=== PATIENT | male | born 1940 | race Caucasian/White ===

== ENCOUNTER → 2016-02-17 | Outpatient (CLI) | payer MEDICARE, BC ==
[~2016-02-17] MED LIST: /METO25TA PO; ALBU17IN INH; ALLO300T2 PO; ASPI325T10 PO; ASPI32ECTA PO; BUSP10TA PO; CALC0.25 PO; CALC1CAP31 PO; CEFD1CAP8 PO; CINA30TA PO; CO Q100C10 PO; CORE12.5 PO; CORE25TA PO; DIGO0.12 PO; E-Z-GAS II EFFERVESCENT PACKET (SODIUM BICARB./CITRIC ACID/SIMETHICONE) As Ordered ONE; E-Z-HD 98% w/w 340GM SUSP BTL As Ordered ONE; E-Z-PAQUE 96% w/w SUSP 176GM BTL As Ordered ONE; FERR150C PO; FISH5CAP PO; FURO20TA2 PO; FURO40TA2 PO; HYDR-4267 PO; IMUR50TA PO; INSUR50VL SC; ISOS120T4 PO; ISOS1TAB PO; ISOS1TAB12 PO; ISOS20TA2 PO; ISOS60TA2 PO; K-TA1TAB PO; LASI40TA PO; LEVO137T14 PO; LEVOXYL PO; LOMO2.5T PO; MECL25CH PO; MORP1SOL PO; MORPHINE SULFATE PO; MULTCAP PO; NITR4TASL SL; OCUVTA PO; OXYCO5TA PO; POLYSPORIN TOP; POTA20TA4 PO; PRAV40TA PO; PRAV80TA PO; SENS30TA PO; SPIR25TA2 PO; SYNT137T7 PO; TYLE325T5 PO; UCER9TAB PO; ULOR80TA PO; VITMTA PO; ZARO2.5T PO; augmentin PO
--- NOTE | 2016-02-17 14:43 | REP ---
ESOPHAGRAM AIR CONTRAST: The procedure was performed under the direct supervision of Dr. Hess. The images were reviewed with Dr. Hess. A single view PA chest x-ray is submitted as a trend investigator film. There is no change compared to a previous chest x-ray performed on 06/07/2014. Liquid barium and gas producing granules are given in the erect position as well as liquid barium in the prone oblique positions in order to perform double contrast esophagram examination. The oral and pharyngeal stages of deglutition are unremarkable. During esophageal transport, there are tertiary waves demonstrated. There is no esophagitis, structure or mucosal ring. There may be a small sliding type hiatal hernia present. Gastroesophageal reflux is not demonstrated on this examination. IMPRESSION: There is esophageal dysmotility. There may be a small sliding type hiatal hernia present. Otherwise unremarkable double contrast esophagram examination. 49 seconds of fluoroscopy time was utilized for this procedure. Reviewed by RODRIGUEZ Grimaldo 02/17/2016 04:15 PEdited and Signed by Chacho Hess MD 02/17/2016 05:22 P
== END ==
LOC: M RAD 08:41
PROVIDERS: ATTEND Otolaryngology
DX: R12 Heartburn (principal)

== ENCOUNTER → 2016-02-23 | Outpatient (CLI) | payer MEDICARE, BC ==
[~2016-02-23] MED LIST changes: -E-Z-GAS II EFFERVESCENT PACKET (SODIUM BICARB./CITRIC ACID/SIMETHICONE) As Ordered ONE; -E-Z-HD 98% w/w 340GM SUSP BTL As Ordered ONE; -E-Z-PAQUE 96% w/w SUSP 176GM BTL As Ordered ONE
[2016-02-23 10:14] LABS: MEAN CORPUSCULAR HGB CONC 32.3 g/dl (32.0-36.5); MEAN CORPUSCULAR VOLUME 102.2 fl (80.0-96.0); RED CELL DISTRIBUTION WIDTH 15.1 % (11.5-14.5); WHITE BLOOD COUNT 9.1 K/mm3 (4.0-10.0)
[2016-02-23 10:51] LABS: ALBUMIN 3.3 GM/DL (3.2-5.2); CALCIUM LEVEL 9.7 MG/DL (8.8-10.2); CREATININE FOR GFR 1.82 MG/DL (0.70-1.30); GLOMERULAR FILTRATION RATE 38.9 (>42)
== END ==
LOC: M LAB 08:57
PROVIDERS: ATTEND Physician Assistant
DX: I25.5 Ischemic cardiomyopathy (principal)

== ENCOUNTER → 2016-03-19 | Outpatient (CLI) | payer MEDICARE, BC ==
[~2016-03-19] MED LIST changes: +OXYC-517 PO; -OXYCO5TA PO
[2016-03-19 08:24] LABS: ALBUMIN 3.3 GM/DL (3.2-5.2); CALCIUM LEVEL 9.6 MG/DL (8.8-10.2); CREATININE FOR GFR 1.72 MG/DL (0.70-1.30); GLOMERULAR FILTRATION RATE 41.5 (>42); MAGNESIUM LEVEL 2.2 MG/DL (1.8-2.4); PHOSPHORUS LEVEL 3.3 MG/DL (2.5-4.9); POTASSIUM SERUM 4.3 MEQ/L (3.5-5.1)
== END ==
LOC: M LAB 07:29
PROVIDERS: ATTEND Physician Assistant
DX: I50.42 Chronic combined systolic (congestive) and diastolic (congestive) heart failure (principal)

== ENCOUNTER → 2016-05-03 | Outpatient (CLI) | payer MEDICARE, BC ==
[2016-05-03 09:08] LABS: BASO % 0.3 % (0.0-1.0); EOS # 0.1 K/mm3 (0.0-0.50); LARGE UNSTAINED CELL # 0.2 K/mm3 (0.0-0.4); LARGE UNSTAINED CELL % 2.4 % (0.0-4.0); LYMPH # 0.6 K/mm3 (1.5-4.5); LYMPH % 8.9 % (24.0-44.0); MEAN CORPUSCULAR HEMOGLOBIN 32.8 pg (27.0-33.0); MEAN CORPUSCULAR HGB CONC 32.1 g/dl (32.0-36.5); MEAN CORPUSCULAR VOLUME 101.9 fl (80.0-96.0); MONO # 0.4 K/mm3 (0.0-0.8); MONO % 6.1 % (0.0-5.0); NEUTROPHILS # 5.5 K/mm3 (1.8-7.7); NEUTROPHILS % 81.4 % (36.0-66.0); PLATELET COUNT, AUTOMATED 228 k/mm3 (150-450); RED CELL DISTRIBUTION WIDTH 14.2 % (11.5-14.5); WHITE BLOOD COUNT 6.8 K/mm3 (4.0-10.0)
[2016-05-03 09:33] LABS: CREATININE FOR GFR 1.84 MG/DL (0.70-1.30); GLOMERULAR FILTRATION RATE 38.4 (>42); POTASSIUM SERUM 4.5 MEQ/L (3.5-5.1)
[2016-05-03 09:34] LABS: ALBUMIN 3.2 GM/DL (3.2-5.2); BILIRUBIN,TOTAL 0.3 MG/DL (0.2-1.0); ERYTHROCYTE SEDIMENTATION RATE 43 mm/hr (0-20); TOTAL PROTEIN 6.4 GM/DL (6.4-8.2)
== END ==
LOC: M LAB 08:19
PROVIDERS: ATTEND Internal Medicine Gastroenterology
DX: K51.00 Ulcerative (chronic) pancolitis without complications (principal)

== ENCOUNTER → 2016-06-08 | Outpatient (CLI) | payer MEDICARE, BC ==
[2016-06-08 13:45] LABS: MEAN CORPUSCULAR HEMOGLOBIN 33.9 pg (27.0-33.0); MEAN CORPUSCULAR VOLUME 102.7 fl (80.0-96.0); RED CELL DISTRIBUTION WIDTH 14.6 % (11.5-14.5); WHITE BLOOD COUNT 9.6 K/mm3 (4.0-10.0)
[2016-06-08 13:54] LABS: ALBUMIN 3.6 GM/DL (3.2-5.2); CALCIUM LEVEL 10.5 MG/DL (8.8-10.2); CREATININE FOR GFR 1.92 MG/DL (0.70-1.30); GLOMERULAR FILTRATION RATE 36.4 (>42); PHOSPHORUS LEVEL 2.5 MG/DL (2.5-4.9); POTASSIUM SERUM 4.7 MEQ/L (3.5-5.1)
== END ==
LOC: M LAB 12:48
PROVIDERS: ATTEND Physician Assistant
DX: R07.2 Precordial pain (principal); R06.02 Shortness of breath

== ENCOUNTER → 2016-06-21 | Outpatient (CLI) | payer MEDICARE, BC ==
[2016-06-21 08:54] LABS: ALBUMIN 3.2 GM/DL (3.2-5.2); CALCIUM LEVEL 8.3 MG/DL (8.8-10.2); CREATININE FOR GFR 1.87 MG/DL (0.70-1.30); GLOMERULAR FILTRATION RATE 37.6 (>42); MAGNESIUM LEVEL 2.4 MG/DL (1.8-2.4); PHOSPHORUS LEVEL 2.5 MG/DL (2.5-4.9); POTASSIUM SERUM 4.4 MEQ/L (3.5-5.1)
== END ==
LOC: M LAB 07:57
PROVIDERS: ATTEND Physician Assistant
DX: I50.42 Chronic combined systolic (congestive) and diastolic (congestive) heart failure (principal)

== ENCOUNTER → 2016-07-26 | Outpatient (CLI) | payer MEDICARE, BC ==
[2016-07-26 08:41] LABS: BASO % 0.6 % (0.0-1.0); EOS # 0.2 K/mm3 (0.0-0.50); EOS % 2.2 % (0.0-3.0); LARGE UNSTAINED CELL # 0.2 K/mm3 (0.0-0.4); LARGE UNSTAINED CELL % 2.4 % (0.0-4.0); LYMPH # 1.1 K/mm3 (1.5-4.5); LYMPH % 13.6 % (24.0-44.0); MEAN CORPUSCULAR HEMOGLOBIN 34.3 pg (27.0-33.0); MONO # 0.6 K/mm3 (0.0-0.8); MONO % 7.8 % (0.0-5.0); NEUTROPHILS % 73.3 % (36.0-66.0); PLATELET COUNT, AUTOMATED 266 k/mm3 (150-450); RED CELL DISTRIBUTION WIDTH 14.2 % (11.5-14.5); WHITE BLOOD COUNT 8.2 K/mm3 (4.0-10.0)
[2016-07-26 09:00] LABS: ALBUMIN 3.3 GM/DL (3.2-5.2); ALBUMIN/GLOBULIN RATIO 1.03 (1.00-1.93); BILIRUBIN,TOTAL 0.3 MG/DL (0.2-1.0); CALCIUM LEVEL 9.1 MG/DL (8.8-10.2); CREATININE FOR GFR 1.96 MG/DL (0.70-1.30); GLOMERULAR FILTRATION RATE 35.6 (>42); POTASSIUM SERUM 4.2 MEQ/L (3.5-5.1); TOTAL PROTEIN 6.5 GM/DL (6.4-8.2)
== END ==
LOC: M LAB 07:50
PROVIDERS: ATTEND Internal Medicine Gastroenterology
DX: K51.00 Ulcerative (chronic) pancolitis without complications (principal)

== ENCOUNTER → 2016-08-03 | Outpatient (CLI) | payer MEDICARE, BC ==
[2016-08-03 09:34] LABS: ALBUMIN 3.3 GM/DL (3.2-5.2); CREATININE FOR GFR 2.25 MG/DL (0.70-1.30); GLOMERULAR FILTRATION RATE 30.3 (>42); MAGNESIUM LEVEL 2.5 MG/DL (1.8-2.4); PHOSPHORUS LEVEL 4.1 MG/DL (2.5-4.9); POTASSIUM SERUM 4.9 MEQ/L (3.5-5.1)
== END ==
LOC: M LAB 08:17
PROVIDERS: ATTEND Physician Assistant
DX: I50.42 Chronic combined systolic (congestive) and diastolic (congestive) heart failure (principal)

== ENCOUNTER → 2016-08-10 | Outpatient (CLI) | payer MEDICARE, BC ==
[~2016-08-10] MED LIST changes: +ASPI325T24 PO; -ASPI32ECTA PO; +HYDR-3911 PO; -HYDR-4267 PO; +IMUR50TA6 PO
[2016-08-10 09:57] LABS: ALBUMIN 3.2 GM/DL (3.2-5.2); ALBUMIN/GLOBULIN RATIO 0.97 (1.00-1.93); BILIRUBIN,TOTAL 0.3 MG/DL (0.2-1.0); CALCIUM LEVEL 8.6 MG/DL (8.8-10.2); CREATININE FOR GFR 2.18 MG/DL (0.70-1.30); FREE T4 1.13 NG/DL (0.76-1.46); GLOMERULAR FILTRATION RATE 31.5 (>42); POTASSIUM SERUM 4.5 MEQ/L (3.5-5.1); TOTAL PROTEIN 6.5 GM/DL (6.4-8.2)
[2016-08-10 10:03] LABS: BASO % 0.6 % (0.0-1.0); EOS # 0.2 K/mm3 (0.0-0.50); LARGE UNSTAINED CELL # 0.1 K/mm3 (0.0-0.4); LARGE UNSTAINED CELL % 1.7 % (0.0-4.0); MEAN CORPUSCULAR HEMOGLOBIN 34.5 pg (27.0-33.0); MEAN CORPUSCULAR HGB CONC 33.5 g/dl (32.0-36.5); MEAN CORPUSCULAR VOLUME 102.9 fl (80.0-96.0); MONO # 0.4 K/mm3 (0.0-0.8); MONO % 4.6 % (0.0-5.0); NEUTROPHILS % 81.1 % (36.0-66.0); PLATELET COUNT, AUTOMATED 236 k/mm3 (150-450); RED CELL DISTRIBUTION WIDTH 14.5 % (11.5-14.5); WHITE BLOOD COUNT 8.6 K/mm3 (4.0-10.0)
== END ==
LOC: M LAB 08:05
PROVIDERS: ATTEND Family Medicine
DX: D50.9 Iron deficiency anemia, unspecified (principal); N18.4 Chronic kidney disease, stage 4 (severe); E03.9 Hypothyroidism, unspecified; E11.9 Type 2 diabetes mellitus without complications

== ENCOUNTER → 2016-08-23 | Outpatient (CLI) | payer MEDICARE, BC ==
[2016-08-23 09:42] LABS: ALBUMIN 3.2 GM/DL (3.2-5.2); CALCIUM LEVEL 9.1 MG/DL (8.8-10.2); CREATININE FOR GFR 1.8 MG/DL (0.70-1.30); GLOMERULAR FILTRATION RATE 39.2 (>42); PHOSPHORUS LEVEL 2.3 MG/DL (2.5-4.9); POTASSIUM SERUM 3.6 MEQ/L (3.5-5.1)
== END ==
LOC: M LAB 08:25
PROVIDERS: ATTEND Physician Assistant
DX: I50.42 Chronic combined systolic (congestive) and diastolic (congestive) heart failure (principal)

== ENCOUNTER → 2016-09-11 | Outpatient (CLI) | payer MEDICARE, BC ==
[2016-09-11 09:12] LABS: ALBUMIN 3.4 GM/DL (3.2-5.2); CALCIUM LEVEL 9.3 MG/DL (8.8-10.2); CREATININE FOR GFR 1.82 MG/DL (0.70-1.30); GLOMERULAR FILTRATION RATE 38.8 (>42); MAGNESIUM LEVEL 2.7 MG/DL (1.8-2.4); PHOSPHORUS LEVEL 3.8 MG/DL (2.5-4.9); POTASSIUM SERUM 4.1 MEQ/L (3.5-5.1)
== END ==
LOC: M LAB 07:35
PROVIDERS: ATTEND Physician Assistant
DX: I50.42 Chronic combined systolic (congestive) and diastolic (congestive) heart failure (principal)

== ENCOUNTER 2016-10-20 23:47 | Emergency (ER) | payer MEDICARE, BC ==
[~2016-10-20] VITALS: Ht 170.2 cm; Wt 75.0 kg
[2016-10-21] MEDS ORDERED: ASPIRIN 325 MG TAB PO ONE (00:15)
[2016-10-21 00:24] LABS: BASO # 0.1 K/mm3 (0.0-0.2); BASO % 1.4 % (0.0-1.0); EOS # 0.1 K/mm3 (0.0-0.50); EOS % 1.3 % (0.0-3.0); LARGE UNSTAINED CELL # 0.2 K/mm3 (0.0-0.4); LARGE UNSTAINED CELL % 2.4 % (0.0-4.0); LYMPH # 0.5 K/mm3 (1.5-4.5); LYMPH % 5.7 % (24.0-44.0); MEAN CORPUSCULAR HEMOGLOBIN 33.9 pg (27.0-33.0); MEAN CORPUSCULAR HGB CONC 33.6 g/dl (32.0-36.5); MEAN CORPUSCULAR VOLUME 100.8 fl (80.0-96.0); MONO # 0.7 K/mm3 (0.0-0.8); MONO % 7.7 % (0.0-5.0); NEUTROPHILS # 7.3 K/mm3 (1.8-7.7); NEUTROPHILS % 81.4 % (36.0-66.0); PLATELET COUNT, AUTOMATED 277 k/mm3 (150-450); RED CELL DISTRIBUTION WIDTH 14.5 % (11.5-14.5)
[2016-10-21 00:34] LABS: INR 1.02
[2016-10-21 00:46] LABS: CALCIUM LEVEL 9.8 MG/DL (8.8-10.2); CREATININE FOR GFR 1.98 MG/DL (0.70-1.30); GLOMERULAR FILTRATION RATE 35.2 (>42); POTASSIUM SERUM 3.3 MEQ/L (3.5-5.1)
[2016-10-21 07:23] VITALS: BP 149/73
--- NOTE | 2016-10-21 07:43 | REP ---
Clinical: Chest pain. Technique: PA and lateral. Comparison: 06/08/2015. Findings: Cardiomegaly remains stable along with evidence for prior sternotomy, CABG, and pacemaker. Lung evans demonstrate chronic interstitial changes without obvious acute consolidation, effusion, or pneumothorax. Skeletal structures intact. Impression: Chronic stable changes. No acute cardiopulmonary process. Signed by Mark Alcantar MD 10/21/2016 07:34 A
--- NOTE | 2016-10-22 08:19 | ECGEPIP ---
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
--- NOTE | 2016-10-22 19:17 | ECGEPIP ---
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
== END 2016-10-21 07:48 | disposition home or self-care (01) ==
LOC: EDSEX 23:47 → EDBD 23:47 → M ED 23:47
DX: R07.9 Chest pain, unspecified (principal); N18.9 Chronic kidney disease, unspecified; J44.9 Chronic obstructive pulmonary disease, unspecified; I25.10 Atherosclerotic heart disease of native coronary artery without angina pectoris; E78.4 Other hyperlipidemia

== ENCOUNTER → 2016-11-08 | Outpatient (CLI) | payer MEDICARE, BC ==
[2016-11-08 09:29] LABS: BASO # 0.1 10^3/uL (0.0-0.2); EOS # 0.1 10^3/uL (0.0-0.50); EOS % 1.6 % (0.0-3.0); IMMATURE GRANULOCYTE % 1.8 % (0-0); LYMPH % 12.3 % (24.0-44.0); MEAN CORPUSCULAR HEMOGLOBIN 32.9 pg (27.0-33.0); MEAN CORPUSCULAR HGB CONC 31.6 g/dl (32.0-36.5); MONO # 0.8 10^3/uL (0.0-0.8); MONO % 9.5 % (0.0-5.0); NEUTROPHILS % 73.8 % (36.0-66.0); PLATELET COUNT, AUTOMATED 237 10^3/uL (150-450); RED CELL DISTRIBUTION WIDTH 15.4 % (11.5-14.5); WHITE BLOOD COUNT 8.1 10^3/uL (4.0-10.0)
[2016-11-08 09:48] LABS: ALBUMIN 3.1 GM/DL (3.2-5.2); ALBUMIN/GLOBULIN RATIO 0.91 (1.00-1.93); BILIRUBIN,TOTAL 0.5 MG/DL (0.2-1.0); CALCIUM LEVEL 8.9 MG/DL (8.8-10.2); CREATININE FOR GFR 1.69 MG/DL (0.70-1.30); GLOMERULAR FILTRATION RATE 42.2 (>42); POTASSIUM SERUM 3.6 MEQ/L (3.5-5.1); TOTAL PROTEIN 6.5 GM/DL (6.4-8.2)
[2016-11-08 10:10] LABS: ERYTHROCYTE SEDIMENTATION RATE 42 mm/hr (0-20)
== END ==
LOC: M LAB 08:37
PROVIDERS: ATTEND Internal Medicine Gastroenterology
DX: K51.00 Ulcerative (chronic) pancolitis without complications (principal)

== ENCOUNTER → 2016-11-13 | Outpatient (CLI) | payer MEDICARE, BC ==
[2016-11-13 09:49] LABS: ALBUMIN 3.2 GM/DL (3.2-5.2); CALCIUM LEVEL 8.7 MG/DL (8.8-10.2); CREATININE FOR GFR 1.74 MG/DL (0.70-1.30); GLOMERULAR FILTRATION RATE 40.8 (>42); PHOSPHORUS LEVEL 3.1 MG/DL (2.5-4.9); POTASSIUM SERUM 3.9 MEQ/L (3.5-5.1)
== END ==
LOC: M LAB 08:27
PROVIDERS: ATTEND Physician Assistant
DX: I50.42 Chronic combined systolic (congestive) and diastolic (congestive) heart failure (principal)

== ENCOUNTER → 2016-12-17 | Outpatient (CLI) | payer MEDICARE, BC ==
[2016-12-17 08:58] LABS: ALBUMIN 3.1 GM/DL (3.2-5.2); CALCIUM LEVEL 9.6 MG/DL (8.8-10.2); CREATININE FOR GFR 1.85 MG/DL (0.70-1.30); MAGNESIUM LEVEL 2.1 MG/DL (1.8-2.4); PHOSPHORUS LEVEL 3.1 MG/DL (2.5-4.9); POTASSIUM SERUM 3.8 MEQ/L (3.5-5.1)
== END ==
LOC: M LAB 08:02
PROVIDERS: ATTEND Physician Assistant
DX: I50.42 Chronic combined systolic (congestive) and diastolic (congestive) heart failure (principal); D50.9 Iron deficiency anemia, unspecified; E78.5 Hyperlipidemia, unspecified; E11.9 Type 2 diabetes mellitus without complications; M10.9 Gout, unspecified

== ENCOUNTER → 2016-12-18 | Outpatient (REF) | payer MEDICARE, BC | LOC: M SFHCPLAZ 11:43 | PROVIDERS: ATTEND Family Medicine | DX: I25.10 Atherosclerotic heart disease of native coronary artery without angina pectoris (principal) | CPT/HCPCS: 82550; 82553; 84484; G0463 ==

== ENCOUNTER → 2017-01-18 | Outpatient (CLI) | payer MEDICARE, BC ==
[2017-01-18 14:10] LABS: BASO # 0.1 10^3/uL (0.0-0.2); BASO % 0.8 % (0.0-1.0); EOS # 0.2 10^3/uL (0.0-0.50); EOS % 1.6 % (0.0-3.0); IMMATURE GRANULOCYTE % 2.4 % (0-0); LYMPH # 0.9 10^3/uL (1.5-4.5); LYMPH % 9.1 % (24.0-44.0); MEAN CORPUSCULAR HEMOGLOBIN 32.7 pg (27.0-33.0); MEAN CORPUSCULAR HGB CONC 32.4 g/dl (32.0-36.5); MONO % 10.6 % (0.0-5.0); NEUTROPHILS # 7.1 10^3/uL (1.8-7.7); NEUTROPHILS % 75.5 % (36.0-66.0); PLATELET COUNT, AUTOMATED 226 10^3/uL (150-450); RED CELL DISTRIBUTION WIDTH 15.4 % (11.5-14.5); WHITE BLOOD COUNT 9.5 10^3/uL (4.0-10.0)
[2017-01-18 14:36] LABS: ALBUMIN 3.6 GM/DL (3.2-5.2); ALBUMIN/GLOBULIN RATIO 0.95 (1.00-1.93); BILIRUBIN,TOTAL 0.4 MG/DL (0.2-1.0); CALCIUM LEVEL 9.9 MG/DL (8.8-10.2); CREATININE FOR GFR 1.9 MG/DL (0.70-1.30); GLOMERULAR FILTRATION RATE 36.9 (>42); POTASSIUM SERUM 4.1 MEQ/L (3.5-5.1); TOTAL PROTEIN 7.4 GM/DL (6.4-8.2)
== END ==
LOC: M LAB 13:46
PROVIDERS: ATTEND Internal Medicine Gastroenterology
DX: K51.00 Ulcerative (chronic) pancolitis without complications (principal)

== ENCOUNTER 2017-03-22 11:01 | Inpatient (IN) | payer MEDICARE, BC ==
[2017-03-22 12:13] LABS: BASO # 0.1 10^3/uL (0.0-0.2); BASO % 1.2 % (0.0-1.0); EOS # 0.2 10^3/uL (0.0-0.50); EOS % 2.2 % (0.0-3.0); HEMATOCRIT 39.3 % (42.0-52.0); HEMOGLOBIN 12.8 g/dl (14.0-18.0); IMMATURE GRANULOCYTE % 4.1 % (0-3.0); LYMPH # 0.8 10^3/uL (1.5-4.5); LYMPH % 9.1 % (24.0-44.0); MEAN CORPUSCULAR HEMOGLOBIN 33.2 pg (27.0-33.0); MEAN CORPUSCULAR HGB CONC 32.6 g/dl (32.0-36.5); MEAN CORPUSCULAR VOLUME 102.1 fl (80.0-96.0); MONO # 0.9 10^3/uL (0.0-0.8); NEUTROPHILS # 6.1 10^3/uL (1.8-7.7); NEUTROPHILS % 72.4 % (36.0-66.0); PLATELET COUNT, AUTOMATED 191 10^3/uL (150-450); RED BLOOD COUNT 3.85 10^6/uL (4.30-6.10); RED CELL DISTRIBUTION WIDTH 15.7 % (11.5-14.5); WHITE BLOOD COUNT 8.5 10^3/uL (4.0-10.0)
[2017-03-22 12:24] LABS: INR 0.98; PROTHROMBIN TIME 13.1 SECONDS (12.4-14.5)
[2017-03-22 12:37] LABS: ALBUMIN 3.2 GM/DL (3.2-5.2); ALBUMIN/GLOBULIN RATIO 0.89 (1.00-1.93); ALKALINE PHOSPHATASE 46 U/L (45-117); ALT/SGPT 39 U/L (12-78); ANION GAP 7 MEQ/L (8-16); AST/SGOT 20 U/L (7-37); BILIRUBIN,DIRECT 0.1 MG/DL (0.0-0.2); BILIRUBIN,TOTAL 0.5 MG/DL (0.2-1.0); BLOOD UREA NITROGEN 28 MG/DL (7-18); CALCIUM LEVEL 9.3 MG/DL (8.8-10.2); CARBON DIOXIDE LEVEL 27 MEQ/L (21-32); CHLORIDE LEVEL 107 MEQ/L (98-107); CPK CREATINE PHOSPHOKINASE 55 U/L (39-308); CREATININE FOR GFR 1.69 MG/DL (0.70-1.30); GLOMERULAR FILTRATION RATE 42.2 (>42); GLUCOSE, FASTING 188 MG/DL (70-100); POTASSIUM SERUM 4.4 MEQ/L (3.5-5.1); SODIUM LEVEL 141 MEQ/L (136-145); TOTAL PROTEIN 6.8 GM/DL (6.4-8.2); TROPONIN I 0.06 NG/ML (< 0.10)
[2017-03-22 12:42] LABS: CK-MB VALUE MASS 2.3 NG/ML (0.0-3.6); MB/CK RELATIVE INDEX 4.18 (< OR =4)
[2017-03-22 16:36] LABS: CK-MB VALUE MASS 2.1 NG/ML (0.0-3.6); CPK CREATINE PHOSPHOKINASE 51 U/L (39-308); MB/CK RELATIVE INDEX 4.11 (< OR =4); TROPONIN I 0.08 NG/ML (< 0.10)
[2017-03-22 17:44] LABS: BEDSIDE GLUCOSE 182 MG/DL (83-110)
[2017-03-22] MEDS ORDERED: GLUCAGON FOR INJ 1 MG VIAL (J1610) SC (19:00)
[2017-03-22] MEDS ORDERED: DEXTROSE 50% 50 ML SYRINGE IV (19:00)
[2017-03-22] MEDS ORDERED: GLUCOSE 4 GM CHEW TABLET PO (19:00)
[2017-03-22 19:02] LABS: BEDSIDE GLUCOSE 197 MG/DL (83-110)
[2017-03-22] MEDS: HumaLOG INSULIN (NovoLOG) PER UNIT SC ×2 (19:26→21:00)
[2017-03-22 19:29] LABS: CPK CREATINE PHOSPHOKINASE 51 U/L (39-308); TROPONIN I 0.07 NG/ML (< 0.10)
[2017-03-22 19:30] LABS: CK-MB VALUE MASS 2.2 NG/ML (0.0-3.6); MB/CK RELATIVE INDEX 4.31 (< OR =4)
[2017-03-22] MEDS ORDERED: oxyCODONE 5MG TAB PO (19:30)
[2017-03-22] MEDS ORDERED: NITROGLYCERIN 0.4 MG SUBL TABLET SL (19:30)
[2017-03-22] MEDS ORDERED: MORPHINE SULFATE ORAL SOLN 10 MG/5 ML UD PO (19:30)
[2017-03-22] MEDS: CARVedilol 12.5 MG TAB PO (21:38)
[2017-03-22] MEDS: **hydrALAZINE HCL** 25 MG TAB PO (21:39)
[2017-03-22] MEDS: busPIRone 10 MG TAB PO (21:39)
[2017-03-22] MEDS: MECLIZINE 12.5 MG TAB PO (21:39)
[2017-03-22 21:40] LABS: BEDSIDE GLUCOSE 244 MG/DL (83-110)
[2017-03-22 22:49] LABS: CPK CREATINE PHOSPHOKINASE 46 U/L (39-308); TROPONIN I 0.05 NG/ML (< 0.10)
[2017-03-22 22:50] LABS: CK-MB VALUE MASS 1.9 NG/ML (0.0-3.6); MB/CK RELATIVE INDEX 4.13 (< OR =4)
[2017-03-22] MEDS: ISOSORBIDE MON. (IMDUR) 60 MG XR TAB PO (23:22)
[2017-03-22] MEDS: LEVOTHYROXINE 137MCG TABLET (0.137MG) PO (23:23)
[2017-03-22] MEDS: OCUVITE 1 TAB PO (23:23)
[2017-03-22] MEDS: PRAVASTATIN 20 MG TAB PO (23:24)
[2017-03-23 04:13] LABS: BASO # 0.1 10^3/uL (0.0-0.2); BASO % 1.2 % (0.0-1.0); EOS # 0.2 10^3/uL (0.0-0.50); HEMATOCRIT 35.4 % (42.0-52.0); HEMOGLOBIN 11.5 g/dl (14.0-18.0); IMMATURE GRANULOCYTE % 4.2 % (0-3.0); LYMPH # 0.9 10^3/uL (1.5-4.5); LYMPH % 10.7 % (24.0-44.0); MEAN CORPUSCULAR HGB CONC 32.5 g/dl (32.0-36.5); MEAN CORPUSCULAR VOLUME 101.4 fl (80.0-96.0); MONO % 12.1 % (0.0-5.0); NEUTROPHILS # 5.9 10^3/uL (1.8-7.7); NEUTROPHILS % 69.8 % (36.0-66.0); PLATELET COUNT, AUTOMATED 199 10^3/uL (150-450); RED BLOOD COUNT 3.49 10^6/uL (4.30-6.10); RED CELL DISTRIBUTION WIDTH 15.7 % (11.5-14.5); WHITE BLOOD COUNT 8.5 10^3/uL (4.0-10.0)
[2017-03-23 04:32] LABS: ANION GAP 8 MEQ/L (8-16); BLOOD UREA NITROGEN 31 MG/DL (7-18); CALCIUM LEVEL 9.8 MG/DL (8.8-10.2); CARBON DIOXIDE LEVEL 27 MEQ/L (21-32); CHLORIDE LEVEL 104 MEQ/L (98-107); CPK CREATINE PHOSPHOKINASE 44 U/L (39-308); CREATININE FOR GFR 1.71 MG/DL (0.70-1.30); GLOMERULAR FILTRATION RATE 41.6 (>42); GLUCOSE, FASTING 220 MG/DL (70-100); SODIUM LEVEL 139 MEQ/L (136-145); TROPONIN I 0.04 NG/ML (< 0.10)
[2017-03-23 04:33] LABS: CK-MB VALUE MASS 1.6 NG/ML (0.0-3.6); MB/CK RELATIVE INDEX 3.63 (< OR =4)
[2017-03-23] MEDS: ENOXAPARIN 40 MG/0.4 ML SYRINGE (J1650) SC (08:50)
[2017-03-23] MEDS: TORSEMIDE (DEMADEX) 50 MG PER 1/2 TAB PO (08:50)
[2017-03-23] MEDS: BUDESONIDE EC 3 MG CAP (ENTOCORT EC) PO (08:50)
[2017-03-23] MEDS: HumaLOG INSULIN (NovoLOG) PER UNIT SC ×2 (08:51→12:26)
[2017-03-23] MEDS: MULTIVITAMINS/MINERALS THERAP 1 TAB PO (08:51)
[2017-03-23] MEDS: ASPIRIN ENTERIC 325 MG TAB PO (08:51)
[2017-03-23] MEDS: SPIRONOLACTONE 25 MG TAB PO (08:51)
[2017-03-23] MEDS: **hydrALAZINE HCL** 25 MG TAB PO (08:51)
[2017-03-23] MEDS: MECLIZINE 12.5 MG TAB PO (08:51)
[2017-03-23] MEDS: CARVedilol 12.5 MG TAB PO (08:52)
[2017-03-23] MEDS: FEBUXOSTAT 40 MG TABLET (ULORIC) PO (08:52)
[2017-03-23] MEDS: ISOSORBIDE MON. (IMDUR) 60 MG XR TAB PO (08:52)
[2017-03-23] MEDS: busPIRone 10 MG TAB PO (08:52)
[2017-03-23] MEDS: OCUVITE 1 TAB PO (09:00)
[2017-03-23 12:03] LABS: BEDSIDE GLUCOSE 289 MG/DL (83-110)
[2017-03-25] MEDS ORDERED: CALCITRIOL 0.25 MCG CAP (S0169) PO (09:00)
[2017-03-25] MEDS ORDERED: azaTHIOprine 50 MG TAB (J7500) PO (09:00)
== END 2017-03-23 15:18 | disposition home or self-care (01) | DRG 313 ==
LOC: M ED 11:01 → M ED INP 19:28 → M PCU 22:31
DX: R07.89 Other chest pain (principal); I50.22 Chronic systolic (congestive) heart failure; I13.0 Hypertensive heart and chronic kidney disease with heart failure and stage 1 through stage 4 chronic kidney disease, or unspecified chronic kidney disease; N18.3 Chronic kidney disease, stage 3 (moderate); J44.9 Chronic obstructive pulmonary disease, unspecified; I25.10 Atherosclerotic heart disease of native coronary artery without angina pectoris; I25.5 Ischemic cardiomyopathy; R06.00 Dyspnea, unspecified; I25.2 Old myocardial infarction; E11.22 Type 2 diabetes mellitus with diabetic chronic kidney disease; L40.9 Psoriasis, unspecified; E66.9 Obesity, unspecified; E03.9 Hypothyroidism, unspecified; K76.9 Liver disease, unspecified; F32.9 Major depressive disorder, single episode, unspecified; F41.9 Anxiety disorder, unspecified; M10.9 Gout, unspecified; E78.5 Hyperlipidemia, unspecified; M51.36 Other intervertebral disc degeneration, lumbar region; Z87.891 Personal history of nicotine dependence; Z95.0 Presence of cardiac pacemaker; Z79.4 Long term (current) use of insulin; Z79.82 Long term (current) use of aspirin; Z79.899 Other long term (current) drug therapy; Z88.8 Allergy status to other drugs, medicaments and biological substances; Z95.5 Presence of coronary angioplasty implant and graft; Z68.35 Body mass index [BMI] 35.0-35.9, adult

== ENCOUNTER 2017-04-02 12:18 | Emergency (ER) | payer MEDICARE, BC ==
[2017-04-02] MEDS: ASPIRIN 81 MG CHEW TABLET PO (12:30)
[2017-04-02] MEDS: IPRATROPIUM 0.5MG/ALBUTEROL 2.5MG INH SOL UD 3ML (DUONEB)(J7620) NEB ×2 (12:51→12:53)
[2017-04-02] MEDS: methylPREDNISolone INJ 125 MG/2 ML VIAL (J2930) IV (13:01)
[2017-04-02 13:12] LABS: VENOUS BASE EXCESS 0.3 (-2.0-2.0); VENOUS HCO3 25.2 MEQ/L (23.0-27.0); VENOUS O2 SATURATION 84.6 % (60.0-80.0); VENOUS PARTIAL PRESSURE CO2 41.8 mmHg (38.0-50.0); VENOUS PH 7.398 UNITS (7.330-7.430); VENOUS STANDARD HCO3 24.5 MEQ/L; VENOUS TOTAL CO2 26.5 MEQ/L (24.0-28.0)
[2017-04-02 13:19] LABS: BASO # 0.1 10^3/uL (0.0-0.2); BASO % 1.3 % (0.0-1.0); EOS # 0.3 10^3/uL (0.0-0.50); HEMATOCRIT 34.4 % (42.0-52.0); HEMOGLOBIN 11.2 g/dl (14.0-18.0); IMMATURE GRANULOCYTE % 3.4 % (0-3.0); LYMPH # 0.9 10^3/uL (1.5-4.5); LYMPH % 12.8 % (24.0-44.0); MEAN CORPUSCULAR HEMOGLOBIN 33.1 pg (27.0-33.0); MEAN CORPUSCULAR HGB CONC 32.6 g/dl (32.0-36.5); MEAN CORPUSCULAR VOLUME 101.8 fl (80.0-96.0); MONO # 1.2 10^3/uL (0.0-0.8); MONO % 17.3 % (0.0-5.0); NEUTROPHILS # 4.3 10^3/uL (1.8-7.7); NEUTROPHILS % 61.2 % (36.0-66.0); PLATELET COUNT, AUTOMATED 322 10^3/uL (150-450); RED BLOOD COUNT 3.38 10^6/uL (4.30-6.10); RED CELL DISTRIBUTION WIDTH 16.2 % (11.5-14.5); WHITE BLOOD COUNT 7.1 10^3/uL (4.0-10.0)
[2017-04-02 13:30] LABS: INR 1.13; PROTHROMBIN TIME 14.7 SECONDS (12.4-14.5)
[2017-04-02 13:44] LABS: ALBUMIN 3.1 GM/DL (3.2-5.2); ALBUMIN/GLOBULIN RATIO 0.82 (1.00-1.93); ALKALINE PHOSPHATASE 43 U/L (45-117); ALT/SGPT 28 U/L (12-78); AST/SGOT 21 U/L (7-37); BILIRUBIN,DIRECT 0.1 MG/DL (0.0-0.2); BILIRUBIN,TOTAL 0.5 MG/DL (0.2-1.0); TOTAL PROTEIN 6.9 GM/DL (6.4-8.2)
[2017-04-02 13:46] LABS: ANION GAP 8 MEQ/L (8-16); BLOOD UREA NITROGEN 40 MG/DL (7-18); CALCIUM LEVEL 9.8 MG/DL (8.8-10.2); CARBON DIOXIDE LEVEL 26 MEQ/L (21-32); CHLORIDE LEVEL 108 MEQ/L (98-107); CK-MB VALUE MASS 1.3 NG/ML (0.0-3.6); CPK CREATINE PHOSPHOKINASE 47 U/L (39-308); CREATININE FOR GFR 2.55 MG/DL (0.70-1.30); GLOMERULAR FILTRATION RATE 26.3 (>42); GLUCOSE, FASTING 111 MG/DL (70-100); MB/CK RELATIVE INDEX 2.76 (< OR =4); POTASSIUM SERUM 4.2 MEQ/L (3.5-5.1); SODIUM LEVEL 142 MEQ/L (136-145); TROPONIN I 0.06 NG/ML (< 0.10)
[2017-04-02 13:48] LABS: INFLUENZA A AMPLIFICATION NEGATIVE (NEGATIVE); INFLUENZA B AMPLIFICATION NEGATIVE (NEGATIVE)
== END 2017-04-02 15:00 | disposition home or self-care (01) ==
LOC: M ED 12:18
DX: J44.1 Chronic obstructive pulmonary disease with (acute) exacerbation (principal); I10 Essential (primary) hypertension; Z95.5 Presence of coronary angioplasty implant and graft; Z79.4 Long term (current) use of insulin; Z79.82 Long term (current) use of aspirin; Z79.890 Hormone replacement therapy; Z87.891 Personal history of nicotine dependence; Z82.49 Family history of ischemic heart disease and other diseases of the circulatory system; Z88.8 Allergy status to other drugs, medicaments and biological substances
CPT/HCPCS: J2930

== ENCOUNTER → 2017-04-03 | Outpatient (CLI) | payer MEDICARE, BC ==
[2017-04-03 09:54] LABS: ALBUMIN 3.2 GM/DL (3.2-5.2); ANION GAP 14 MEQ/L (8-16); BLOOD UREA NITROGEN 45 MG/DL (7-18); CALCIUM LEVEL 9.4 MG/DL (8.8-10.2); CARBON DIOXIDE LEVEL 23 MEQ/L (21-32); CHLORIDE LEVEL 103 MEQ/L (98-107); CREATININE FOR GFR 3.09 MG/DL (0.70-1.30); GLUCOSE, FASTING 333 MG/DL (70-100); MAGNESIUM LEVEL 2.2 MG/DL (1.8-2.4); PHOSPHORUS LEVEL 3.1 MG/DL (2.5-4.9); SODIUM LEVEL 140 MEQ/L (136-145)
[2017-04-03 09:57] LABS: POTASSIUM SERUM 5.3 MEQ/L (3.5-5.1)
== END ==
LOC: M LAB 08:56
DX: I50.42 Chronic combined systolic (congestive) and diastolic (congestive) heart failure (principal)
CPT/HCPCS: 83735

== ENCOUNTER → 2017-04-08 | Outpatient (CLI) | payer MEDICARE, BC ==
[2017-04-08 09:21] LABS: ALBUMIN 3.3 GM/DL (3.2-5.2); ANION GAP 10 MEQ/L (8-16); BLOOD UREA NITROGEN 62 MG/DL (7-18); CALCIUM LEVEL 9.3 MG/DL (8.8-10.2); CARBON DIOXIDE LEVEL 28 MEQ/L (21-32); CHLORIDE LEVEL 104 MEQ/L (98-107); GLOMERULAR FILTRATION RATE 32.9 (>42); GLUCOSE, FASTING 259 MG/DL (70-100); PHOSPHORUS LEVEL 3.7 MG/DL (2.5-4.9); POTASSIUM SERUM 4.6 MEQ/L (3.5-5.1); SODIUM LEVEL 142 MEQ/L (136-145)
== END ==
LOC: M LAB 08:36
DX: I50.42 Chronic combined systolic (congestive) and diastolic (congestive) heart failure (principal)

== ENCOUNTER → 2017-04-08 | Outpatient (CLI) | payer MEDICARE, BC ==
[2017-04-08 09:08] LABS: BASO % 0.2 % (0.0-1.0); HEMATOCRIT 37.5 % (42.0-52.0); HEMOGLOBIN 12.4 g/dl (14.0-18.0); IMMATURE GRANULOCYTE % 4.7 % (0-3.0); LYMPH # 0.4 10^3/uL (1.5-4.5); LYMPH % 3.1 % (24.0-44.0); MEAN CORPUSCULAR HGB CONC 33.1 g/dl (32.0-36.5); MEAN CORPUSCULAR VOLUME 99.7 fl (80.0-96.0); MONO # 0.6 10^3/uL (0.0-0.8); MONO % 5.3 % (0.0-5.0); NEUTROPHILS # 9.7 10^3/uL (1.8-7.7); NEUTROPHILS % 86.7 % (36.0-66.0); PLATELET COUNT, AUTOMATED 334 10^3/uL (150-450); RED BLOOD COUNT 3.76 10^6/uL (4.30-6.10); RED CELL DISTRIBUTION WIDTH 15.7 % (11.5-14.5); WHITE BLOOD COUNT 11.2 10^3/uL (4.0-10.0)
[2017-04-08 09:31] LABS: ALBUMIN 3.3 GM/DL (3.2-5.2); ALBUMIN/GLOBULIN RATIO 0.94 (1.00-1.93); ALKALINE PHOSPHATASE 45 U/L (45-117); ALT/SGPT 51 U/L (12-78); ANION GAP 9 MEQ/L (8-16); AST/SGOT 34 U/L (7-37); BILIRUBIN,TOTAL 0.4 MG/DL (0.2-1.0); BLOOD UREA NITROGEN 62 MG/DL (7-18); CALCIUM LEVEL 9.4 MG/DL (8.8-10.2); CARBON DIOXIDE LEVEL 28 MEQ/L (21-32); CHLORIDE LEVEL 105 MEQ/L (98-107); CREATININE FOR GFR 2.08 MG/DL (0.70-1.30); FERRITIN 156 NG/ML (26-388); FREE T4 1.29 NG/DL (0.76-1.46); GLOMERULAR FILTRATION RATE 33.2 (>42); GLUCOSE, FASTING 261 MG/DL (70-100); IRON (FE) 53 UG/DL (65-175); MAGNESIUM LEVEL 2.4 MG/DL (1.8-2.4); PERCENT SATURATION 14.8 % (19.7-50.0); POTASSIUM SERUM 4.6 MEQ/L (3.5-5.1); SODIUM LEVEL 142 MEQ/L (136-145); THYROID STIMULATING HORMONE 0.661 uIU/ML (0.358-3.740); TOTAL IRON BINDING CAPACITY 357 UG/DL (250-450); TOTAL PROTEIN 6.8 GM/DL (6.4-8.2)
[2017-04-08 09:56] LABS: ESTIMATED AVERAGE GLUCOSE 203 MG/DL (60-110); HEMOGLOBIN A1c 8.7 %
== END ==
LOC: M LAB 08:40
DX: D50.9 Iron deficiency anemia, unspecified (principal); N18.4 Chronic kidney disease, stage 4 (severe); E03.9 Hypothyroidism, unspecified; E11.22 Type 2 diabetes mellitus with diabetic chronic kidney disease; I50.42 Chronic combined systolic (congestive) and diastolic (congestive) heart failure
CPT/HCPCS: 83550

== ENCOUNTER → 2017-04-26 | Outpatient (CLI) | payer MEDICARE, BC ==
[2017-04-26 14:56] LABS: BASO # 0.1 10^3/uL (0.0-0.2); BASO % 0.6 % (0.0-1.0); EOS # 0.3 10^3/uL (0.0-0.50); EOS % 2.6 % (0.0-3.0); HEMATOCRIT 37.1 % (42.0-52.0); IMMATURE GRANULOCYTE % 2.4 % (0-3.0); LYMPH # 1.1 10^3/uL (1.5-4.5); LYMPH % 11.1 % (24.0-44.0); MEAN CORPUSCULAR HEMOGLOBIN 32.8 pg (27.0-33.0); MEAN CORPUSCULAR HGB CONC 32.3 g/dl (32.0-36.5); MEAN CORPUSCULAR VOLUME 101.4 fl (80.0-96.0); NEUTROPHILS # 7.3 10^3/uL (1.8-7.7); NEUTROPHILS % 73.3 % (36.0-66.0); PLATELET COUNT, AUTOMATED 198 10^3/uL (150-450); RED BLOOD COUNT 3.66 10^6/uL (4.30-6.10); RED CELL DISTRIBUTION WIDTH 15.6 % (11.5-14.5); WHITE BLOOD COUNT 9.9 10^3/uL (4.0-10.0)
[2017-04-26 15:14] LABS: ALBUMIN 3.2 GM/DL (3.2-5.2); ALKALINE PHOSPHATASE 69 U/L (45-117); ALT/SGPT 64 U/L (12-78); ANION GAP 6 MEQ/L (8-16); AST/SGOT 37 U/L (7-37); BILIRUBIN,TOTAL 0.3 MG/DL (0.2-1.0); BLOOD UREA NITROGEN 42 MG/DL (7-18); C REACTIVE PROTEIN QUANTITATIV 2.08 MG/DL (0.00-0.30); CARBON DIOXIDE LEVEL 31 MEQ/L (21-32); CHLORIDE LEVEL 101 MEQ/L (98-107); CREATININE FOR GFR 1.77 MG/DL (0.70-1.30); GLUCOSE, FASTING 232 MG/DL (70-100); POTASSIUM SERUM 4.2 MEQ/L (3.5-5.1); SODIUM LEVEL 138 MEQ/L (136-145); TOTAL PROTEIN 6.4 GM/DL (6.4-8.2)
== END ==
LOC: M LAB 14:15
DX: K51.00 Ulcerative (chronic) pancolitis without complications (principal)
CPT/HCPCS: 80053

== ENCOUNTER → 2017-05-01 | Outpatient (REF) | payer MEDICARE, BC ==
[2017-05-01 12:13] LABS: FERRITIN 86 NG/ML (26-388); IRON (FE) 63 UG/DL (65-175); PERCENT SATURATION 19.5 % (19.7-50.0); TOTAL IRON BINDING CAPACITY 323 UG/DL (250-450)
[2017-05-01 12:59] LABS: ESTIMATED AVERAGE GLUCOSE 229 MG/DL (60-110); HEMOGLOBIN A1c 9.6 %
== END ==
LOC: M SFHCPLAZ 08:57
DX: D50.9 Iron deficiency anemia, unspecified (principal); E03.9 Hypothyroidism, unspecified; E11.9 Type 2 diabetes mellitus without complications
CPT/HCPCS: 83550

== ENCOUNTER → 2017-06-03 | Outpatient (CLI) | payer MEDICARE, BC ==
[2017-06-03 11:14] LABS: ALBUMIN 3.2 GM/DL (3.2-5.2); ALBUMIN/GLOBULIN RATIO 0.97 (1.00-1.93); ALKALINE PHOSPHATASE 44 U/L (45-117); ALT/SGPT 28 U/L (12-78); ANION GAP 4 MEQ/L (8-16); AST/SGOT 22 U/L (7-37); BILIRUBIN,TOTAL 0.6 MG/DL (0.2-1.0); BLOOD UREA NITROGEN 51 MG/DL (7-18); CALCIUM LEVEL 9.1 MG/DL (8.8-10.2); CARBON DIOXIDE LEVEL 34 MEQ/L (21-32); CHLORIDE LEVEL 108 MEQ/L (98-107); CREATININE FOR GFR 2.11 MG/DL (0.70-1.30); GLOMERULAR FILTRATION RATE 32.6 (>42); GLUCOSE, FASTING 48 MG/DL (70-100); MAGNESIUM LEVEL 2.5 MG/DL (1.8-2.4); PHOSPHORUS LEVEL 3.8 MG/DL (2.5-4.9); POTASSIUM SERUM 3.9 MEQ/L (3.5-5.1); SODIUM LEVEL 146 MEQ/L (136-145); TOTAL PROTEIN 6.5 GM/DL (6.4-8.2)
== END ==
LOC: M LAB 10:05
DX: I50.42 Chronic combined systolic (congestive) and diastolic (congestive) heart failure (principal)
CPT/HCPCS: 83735

== ENCOUNTER → 2017-06-18 | Outpatient (CLI) | payer MEDICARE, BC ==
[2017-06-18 09:19] LABS: ANION GAP 8 MEQ/L (8-16); BLOOD UREA NITROGEN 45 MG/DL (7-18); CALCIUM LEVEL 9.2 MG/DL (8.8-10.2); CARBON DIOXIDE LEVEL 30 MEQ/L (21-32); CHLORIDE LEVEL 102 MEQ/L (98-107); CREATININE FOR GFR 2.08 MG/DL (0.70-1.30); GLOMERULAR FILTRATION RATE 33.1 (>42); GLUCOSE, FASTING 311 MG/DL (70-100); MAGNESIUM LEVEL 2.9 MG/DL (1.8-2.4); POTASSIUM SERUM 4.6 MEQ/L (3.5-5.1); SODIUM LEVEL 140 MEQ/L (136-145)
== END ==
LOC: M LAB 08:10
DX: I50.23 Acute on chronic systolic (congestive) heart failure (principal)
CPT/HCPCS: 83735

== ENCOUNTER → 2017-06-25 | Outpatient (CLI) | payer MEDICARE, BC ==
[2017-06-25 10:41] LABS: INR 0.97
[2017-06-25 10:42] LABS: HEMATOCRIT 43.3 % (42.0-52.0); HEMOGLOBIN 14.4 g/dl (13.5-17.5); MEAN CORPUSCULAR HGB CONC 33.3 g/dl (32.0-36.5); MEAN CORPUSCULAR VOLUME 99.3 fl (80.0-96.0); PARTIAL THROMBOPLASTIN TIME 26.4 SECONDS (26.8-37.9); PLATELET COUNT, AUTOMATED 225 10^3/uL (150-450); RED BLOOD COUNT 4.36 10^6/uL (4.30-6.10); RED CELL DISTRIBUTION WIDTH 15.6 % (11.5-14.5); WHITE BLOOD COUNT 11.4 10^3/uL (4.0-10.0)
[2017-06-25 10:57] LABS: ADD MANUAL DIFFER YES; DIFF SLIDE NUMBER 173; POS COUNT POS FLAG; POSITIVE MORPH POS FLAG
[2017-06-25 11:02] LABS: ALBUMIN 3.6 GM/DL (3.2-5.2); ANION GAP 10 MEQ/L (8-16); BLOOD UREA NITROGEN 56 MG/DL (7-18); CALCIUM LEVEL 10.4 MG/DL (8.8-10.2); CARBON DIOXIDE LEVEL 27 MEQ/L (21-32); CHLORIDE LEVEL 103 MEQ/L (98-107); GLOMERULAR FILTRATION RATE 32.8 (>42); GLUCOSE, FASTING 240 MG/DL (70-100); MAGNESIUM LEVEL 2.7 MG/DL (1.8-2.4); PHOSPHORUS LEVEL 4.2 MG/DL (2.5-4.9); POTASSIUM SERUM 4.6 MEQ/L (3.5-5.1); SODIUM LEVEL 140 MEQ/L (136-145)
[2017-06-25 11:06] LABS: BANDS 5 % (< 11); EOSINOPHILS 2 % (0-5); LYMPHOCYTES 9 % (16-52); METAMYELOCYTES 2 % (0-0); MONOCYTES 3 % (0-8); MYELOCYTES 8 % (0-0); NEUTROPHILS 71 % (35-75); PLATELET ESTIMATE NORMAL (NORMAL)
== END ==
LOC: M LAB 08:55
DX: Z01.818 Encounter for other preprocedural examination (principal)
CPT/HCPCS: 83735

== ENCOUNTER → 2017-06-25 | Outpatient (CLI) | payer MEDICARE, BC ==
[2017-06-25 10:56] LABS: ANION GAP 10 MEQ/L (8-16); BLOOD UREA NITROGEN 57 MG/DL (7-18); CALCIUM LEVEL 10.4 MG/DL (8.8-10.2); CARBON DIOXIDE LEVEL 27 MEQ/L (21-32); CHLORIDE LEVEL 104 MEQ/L (98-107); CREATININE FOR GFR 2.03 MG/DL (0.70-1.30); GLOMERULAR FILTRATION RATE 34.1 (>42); GLUCOSE, FASTING 242 MG/DL (70-100); MAGNESIUM LEVEL 2.7 MG/DL (1.8-2.4); POTASSIUM SERUM 4.6 MEQ/L (3.5-5.1); SODIUM LEVEL 141 MEQ/L (136-145)
== END ==
LOC: M LAB 08:50
DX: I50.23 Acute on chronic systolic (congestive) heart failure (principal)

== ENCOUNTER 2017-07-01 08:12 | Day surgery (SDC) | payer MEDICARE, BC ==
[~2017-07-01 08:12] MED LIST changes: -/METO25TA PO; -ALBU17IN INH; -ALLO300T2 PO; -ASPI325T10 PO; -ASPI325T24 PO; -BUSP10TA PO; -CALC0.25 PO; -CALC1CAP31 PO; -CEFD1CAP8 PO; -CINA30TA PO; -CO Q100C10 PO; -CORE12.5 PO; -CORE25TA PO; -DIGO0.12 PO; -FERR150C PO; -FISH5CAP PO; -FURO20TA2 PO; -FURO40TA2 PO; -HYDR-3911 PO; -IMUR50TA PO; -IMUR50TA6 PO; -INSUR50VL SC; -ISOS120T4 PO; -ISOS1TAB PO; -ISOS1TAB12 PO; -ISOS20TA2 PO; -ISOS60TA2 PO; -K-TA1TAB PO; -LASI40TA PO; -LEVO137T14 PO; -LEVOXYL PO; +LIDOCAINE 2% W/EPIN INJ 20ML **PRES FREE As Ordered; -LOMO2.5T PO; -MECL25CH PO; -MORP1SOL PO; -MORPHINE SULFATE PO; -MULTCAP PO; -NITR4TASL SL; -OCUVTA PO; -OXYC-517 PO; -POLYSPORIN TOP; -POTA20TA4 PO; -PRAV40TA PO; -PRAV80TA PO; -SENS30TA PO; -SPIR25TA2 PO; -SYNT137T7 PO; +TOBRADEX OPHTH OINT 3.5 GM As Ordered; -TYLE325T5 PO; -UCER9TAB PO; -ULOR80TA PO; -VITMTA PO; -ZARO2.5T PO; -augmentin PO
[2017-07-01] MEDS: OFLOXACIN 0.3 % (OCUFLOX) OPTH SOL 5ML XX (09:17)
[2017-07-01] MEDS: LIDOCAINE 3.5 % 1ML OPHTH TOPICAL GEL OU (09:17)
[2017-07-01 09:18] LABS: BEDSIDE GLUCOSE 136 MG/DL (83-110)
[2017-07-01] MEDS ORDERED: MIDAZOLAM INJ 2 MG/2 ML VIAL (J2250) As Ordered (09:24)
[2017-07-01] MEDS ORDERED: fentaNYL 100 MCG/2 ML INJECTION (J3010) As Ordered (09:24)
[2017-07-01] MEDS: POVIDONE-IODINE 5% OPHTH PREP SOL 30ML As Ordered (09:28)
[2017-07-01] MEDS ORDERED: LR 1,000 ML IV (10:15)
[2017-07-01] MEDS ORDERED: ACETAMINOPHEN TAB 650MG DOSE (2X325MG) PO (10:15)
== END 2017-07-01 10:43 | disposition home or self-care (01) ==
LOC: M SDC 08:12
DX: H02.005 Unspecified entropion of left lower eyelid (principal); I25.2 Old myocardial infarction; I10 Essential (primary) hypertension; I25.10 Atherosclerotic heart disease of native coronary artery without angina pectoris; E03.9 Hypothyroidism, unspecified; E78.5 Hyperlipidemia, unspecified; E11.9 Type 2 diabetes mellitus without complications; Z87.891 Personal history of nicotine dependence; Z79.4 Long term (current) use of insulin; Z95.0 Presence of cardiac pacemaker; Z95.810 Presence of automatic (implantable) cardiac defibrillator; Z98.61 Coronary angioplasty status; Z79.82 Long term (current) use of aspirin
CPT/HCPCS: 67924

== ENCOUNTER → 2017-08-07 | Outpatient (CLI) | payer MEDICARE, BC ==
[2017-08-07 09:28] LABS: ANION GAP 10 MEQ/L (8-16); BLOOD UREA NITROGEN 48 MG/DL (7-18); CALCIUM LEVEL 8.9 MG/DL (8.8-10.2); CARBON DIOXIDE LEVEL 30 MEQ/L (21-32); CHLORIDE LEVEL 103 MEQ/L (98-107); CREATININE FOR GFR 2.14 MG/DL (0.70-1.30); GLOMERULAR FILTRATION RATE 32.1 (>42); GLUCOSE, FASTING 185 MG/DL (70-100); MAGNESIUM LEVEL 2.5 MG/DL (1.8-2.4); POTASSIUM SERUM 4.1 MEQ/L (3.5-5.1); SODIUM LEVEL 143 MEQ/L (136-145)
== END ==
LOC: M LAB 08:42
DX: I50.42 Chronic combined systolic (congestive) and diastolic (congestive) heart failure (principal)

== ENCOUNTER → 2017-08-07 | Outpatient (CLI) | payer MEDICARE, BC ==
[2017-08-07 09:07] LABS: HEMATOCRIT 38.5 % (42.0-52.0); HEMOGLOBIN 12.9 g/dl (13.5-17.5); MEAN CORPUSCULAR HEMOGLOBIN 33.3 pg (27.0-33.0); MEAN CORPUSCULAR HGB CONC 33.5 g/dl (32.0-36.5); MEAN CORPUSCULAR VOLUME 99.5 fl (80.0-96.0); PLATELET COUNT, AUTOMATED 247 10^3/uL (150-450); RED BLOOD COUNT 3.87 10^6/uL (4.30-6.10); RED CELL DISTRIBUTION WIDTH 17.1 % (11.5-14.5); RETIC HEMOGLOBIN EQUIVALENT 37.7 pg (24-36); RETICULOCYTE # 135.8 10^9/L (17-77); RETICULOCYTE % 3.5 % (0.5-1.5); WHITE BLOOD COUNT 12.1 10^3/uL (4.0-10.0)
[2017-08-07 09:21] LABS: ADD MANUAL DIFFER YES; DIFF SLIDE NUMBER 144; POS COUNT POS FLAG; POSITIVE MORPH POS FLAG
[2017-08-07 09:28] LABS: ESTIMATED AVERAGE GLUCOSE 212 MG/DL (60-110)
[2017-08-07 09:33] LABS: ALBUMIN 3.2 GM/DL (3.2-5.2); ALBUMIN/GLOBULIN RATIO 0.91 (1.00-1.93); ALKALINE PHOSPHATASE 56 U/L (45-117); ALT/SGPT 55 U/L (12-78); ANION GAP 11 MEQ/L (8-16); AST/SGOT 30 U/L (7-37); BILIRUBIN,TOTAL 0.3 MG/DL (0.2-1.0); BLOOD UREA NITROGEN 49 MG/DL (7-18); CALCIUM LEVEL 8.8 MG/DL (8.8-10.2); CARBON DIOXIDE LEVEL 28 MEQ/L (21-32); CHLORIDE LEVEL 104 MEQ/L (98-107); CHOLESTEROL LEVEL 139 MG/DL (<200); CHOLESTEROL RISK RATIO 2.673 (<5); CPK CREATINE PHOSPHOKINASE 69 U/L (39-308); CREATININE FOR GFR 2.11 MG/DL (0.70-1.30); GLOMERULAR FILTRATION RATE 32.6 (>42); GLUCOSE, FASTING 188 MG/DL (70-100); HDL CHOLESTEROL 52 MG/DL (>40); LDL CHOLESTEROL 56.4 MG/DL (<100); NON-HDL-C 87 MG/DL; POTASSIUM SERUM 4.3 MEQ/L (3.5-5.1); SODIUM LEVEL 143 MEQ/L (136-145); TOTAL PROTEIN 6.7 GM/DL (6.4-8.2); TRIGLYCERIDES LEVEL 153 MG/DL (<150); URIC ACID 6.1 MG/DL (3.5-7.2)
[2017-08-07 09:43] LABS: BANDS 5 % (< 11); BASOPHILS 1 % (0-4); EOSINOPHILS 2 % (0-5); LYMPHOCYTES 8 % (16-52); METAMYELOCYTES 2 % (0-0); MONOCYTES 8 % (0-8); MYELOCYTES 1 % (0-0); NEUTROPHILS 73 % (35-75); PLATELET ESTIMATE NORMAL (NORMAL)
== END ==
LOC: M LAB 08:45
DX: D50.9 Iron deficiency anemia, unspecified (principal); I50.42 Chronic combined systolic (congestive) and diastolic (congestive) heart failure; E78.5 Hyperlipidemia, unspecified; E11.9 Type 2 diabetes mellitus without complications; M10.9 Gout, unspecified
CPT/HCPCS: 82550

== ENCOUNTER → 2017-08-13 | Outpatient (REF) | payer MEDICARE, BC ==
[2017-08-13 13:35] LABS: TOTAL PROTEIN,RANDOM URINE 15.9 MG/DL (0.0-12.0)
== END ==
LOC: M LAB REF 12:52
DX: R80.9 Proteinuria, unspecified (principal)
CPT/HCPCS: 84156

== ENCOUNTER 2017-08-23 17:40 | Inpatient (IN) | payer MEDICARE, BC ==
[2017-08-23] MEDS: ALBUTEROL SULFATE 2.5 MG/0.5 ML INH NEB SOLN INH (18:33)
[2017-08-23] MEDS: IPRATROPIUM 0.5MG/ALBUTEROL 2.5MG INH SOL UD 3ML (DUONEB)(J7620) NEB ×2 (18:33→23:43)
[2017-08-23 18:37] LABS: ABG BASE EXCESS 0.8 (-2.0-2.0); ABG HCO3 24.7 MEQ/L (22.0-26.0); ABG O2 SATURATION 93.8 % (95.0-99.0); ABG PARTIAL PRESSURE CO2 37.1 mmHg (35.0-45.0); ABG PARTIAL PRESSURE O2 69.1 mmHg (75.0-100.0); ABG STANDARD HCO3 25.1 MEQ/L (22.0-26.0); ABG TOTAL CO2 25.8 MEQ/L (23.0-31.0); ABG pH (ARTERIAL) 7.441 UNITS (7.350-7.450)
[2017-08-23] MEDS: methylPREDNISolone INJ 125 MG/2 ML VIAL (J2930) IV (18:44)
[2017-08-23] MEDS: FUROSEMIDE 100 MG/10 ML VIAL (J1940) IV (18:44)
[2017-08-23] MEDS ORDERED: FUROSEMIDE 40 MG/4 ML VIAL (J1940) IV (18:45)
[2017-08-23 18:52] LABS: HEMATOCRIT 39.6 % (42.0-52.0); HEMOGLOBIN 13.3 g/dl (13.5-17.5); MEAN CORPUSCULAR HEMOGLOBIN 33.3 pg (27.0-33.0); MEAN CORPUSCULAR HGB CONC 33.6 g/dl (32.0-36.5); MEAN CORPUSCULAR VOLUME 99.2 fl (80.0-96.0); PLATELET COUNT, AUTOMATED 240 10^3/uL (150-450); RED BLOOD COUNT 3.99 10^6/uL (4.30-6.10); RED CELL DISTRIBUTION WIDTH 17.2 % (11.5-14.5); WHITE BLOOD COUNT 9.9 10^3/uL (4.0-10.0)
[2017-08-23 19:01] LABS: ADD MANUAL DIFFER YES; DIFF SLIDE NUMBER 334; POS COUNT POS FLAG; POSITIVE MORPH POS FLAG
[2017-08-23 19:04] LABS: INR 1.01; PROTHROMBIN TIME 13.4 SECONDS (12.1-14.4)
[2017-08-23 19:14] LABS: ALBUMIN 3.2 GM/DL (3.2-5.2); ALBUMIN/GLOBULIN RATIO 0.84 (1.00-1.93); ALKALINE PHOSPHATASE 59 U/L (45-117); ALT/SGPT 59 U/L (12-78); ANION GAP 12 MEQ/L (8-16); AST/SGOT 46 U/L (7-37); BILIRUBIN,DIRECT 0.2 MG/DL (0.0-0.2); BILIRUBIN,TOTAL 0.4 MG/DL (0.2-1.0); BLOOD UREA NITROGEN 57 MG/DL (7-18); CALCIUM LEVEL 8.8 MG/DL (8.8-10.2); CARBON DIOXIDE LEVEL 26 MEQ/L (21-32); CHLORIDE LEVEL 101 MEQ/L (98-107); CPK CREATINE PHOSPHOKINASE 164 U/L (39-308); CREATININE FOR GFR 2.49 MG/DL (0.70-1.30); GLOMERULAR FILTRATION RATE 26.9 (>42); GLUCOSE, FASTING 309 MG/DL (70-100); POTASSIUM SERUM 4.1 MEQ/L (3.5-5.1); SODIUM LEVEL 139 MEQ/L (136-145); THYROXINE (T4) 9.5 UG/DL (4.5-12.0); TROPONIN I 0.66 NG/ML (< 0.10)
[2017-08-23 19:15] LABS: LACTIC ACID SEPSIS PROTOCOL 1.5 MMOL/L (0.4-2.0)
[2017-08-23 19:19] LABS: CK-MB VALUE MASS 3.1 NG/ML (<3.6); MB/CK RELATIVE INDEX 1.89 (< OR =4); NT-PRO BNP 2080 PG/ML (<450)
[2017-08-23 19:21] LABS: ANISOCYTOSIS 1+; BASOPHILS 1 % (0-4); EOSINOPHILS 5 % (0-5); LYMPHOCYTES 11 % (16-52); METAMYELOCYTES 2 % (0-0); MONOCYTES 8 % (0-8); NEUTROPHILS 73 % (35-75)
[2017-08-23 19:22] LABS: INFLUENZA A AMPLIFICATION NEGATIVE (NEGATIVE); INFLUENZA B AMPLIFICATION NEGATIVE (NEGATIVE); PLATELET ESTIMATE NORMAL (NORMAL); TOXIC VACUOLATION 1+
[2017-08-23] MEDS ORDERED: GLUCAGON FOR INJ 1 MG VIAL (J1610) SC (20:45)
[2017-08-23] MEDS ORDERED: GLUCOSE 4 GM CHEW TABLET PO (20:45)
[2017-08-23] MEDS ORDERED: PILL CRUSHER/CUTTER 1 EACH XX (22:30)
[2017-08-23 22:37] LABS: BEDSIDE GLUCOSE 462 MG/DL (83-110)
[2017-08-23 23:27] LABS: BEDSIDE GLUCOSE 497 MG/DL (83-110)
[2017-08-23] MEDS: AZITHROMYCIN 250 MG TAB PO (23:33)
[2017-08-23] MEDS: CARVedilol 12.5 MG TAB PO (23:34)
[2017-08-23] MEDS: PRAVASTATIN 20 MG TAB PO (23:34)
[2017-08-23] MEDS: busPIRone 10 MG TAB PO (23:34)
[2017-08-23] MEDS: ISOSORBIDE MON. (IMDUR) 30 MG XR TAB PO (23:34)
[2017-08-23] MEDS: LEVOTHYROXINE 137MCG TABLET (0.137MG) PO (23:35)
[2017-08-23] MEDS: HumaLOG INSULIN (NovoLOG) PER UNIT SC (23:35)
[2017-08-23] MEDS: HEPARIN SOD (PORCINE) 5000 UNITS/ML VIAL SC (23:35)
[2017-08-23] MEDS: BUDESONIDE 180MCG INHALER (PULMICORT FLEXHALER) INH (23:43)
[2017-08-23] MEDS: TORSEMIDE 20 MG TAB PO (23:54)
[2017-08-24] MEDS: NITROGLYCERIN 0.4 MG SUBL TABLET SL ×3 (00:23→22:34)
[2017-08-24 00:55] LABS: TROPONIN I 0.48 NG/ML (< 0.10)
[2017-08-24] MEDS ORDERED: guaiFENesin 200 MG TAB PO (01:15)
[2017-08-24] MEDS: IPRATROPIUM 0.5MG/ALBUTEROL 2.5MG INH SOL UD 3ML (DUONEB)(J7620) NEB ×4 (02:00→20:02)
[2017-08-24 05:38] LABS: HEMATOCRIT 38.9 % (42.0-52.0); MEAN CORPUSCULAR HEMOGLOBIN 33.4 pg (27.0-33.0); MEAN CORPUSCULAR HGB CONC 33.4 g/dl (32.0-36.5); PLATELET COUNT, AUTOMATED 226 10^3/uL (150-450); RED BLOOD COUNT 3.89 10^6/uL (4.30-6.10); RED CELL DISTRIBUTION WIDTH 17.1 % (11.5-14.5); WHITE BLOOD COUNT 7.8 10^3/uL (4.0-10.0)
[2017-08-24] MEDS: MAALOX 30 ML SUSP *UDC PO (05:41)
[2017-08-24] MEDS: HEPARIN SOD (PORCINE) 5000 UNITS/ML VIAL SC (05:41)
[2017-08-24 05:57] LABS: ANION GAP 13 MEQ/L (8-16); BLOOD UREA NITROGEN 57 MG/DL (7-18); CALCIUM LEVEL 8.7 MG/DL (8.8-10.2); CARBON DIOXIDE LEVEL 23 MEQ/L (21-32); CHLORIDE LEVEL 100 MEQ/L (98-107); CREATININE FOR GFR 2.41 MG/DL (0.70-1.30); POTASSIUM SERUM 4.1 MEQ/L (3.5-5.1); SODIUM LEVEL 136 MEQ/L (136-145); TROPONIN I 0.81 NG/ML (< 0.10)
[2017-08-24 06:04] LABS: GLUCOSE, FASTING 456 MG/DL (70-100)
[2017-08-24] MEDS: MORPHINE 4 MG/ML 1ML VIAL/SYRINGE (J2270) IV ×3 (06:39→23:18)
[2017-08-24] MEDS: HumaLOG INSULIN (NovoLOG) PER UNIT SC ×3 (06:39→18:34)
[2017-08-24] MEDS ORDERED: HEPARIN DRIP 25,000 UNITS in APPROPRIATE DILUENT 1 EA IV (07:04)
[2017-08-24] MEDS ORDERED: HEPARIN SOD (PORCINE) 5000 UNITS/ML VIAL IV ×2 (07:15→07:30)
[2017-08-24] MEDS ORDERED: HumaLOG INSULIN (NovoLOG) PER UNIT SC (07:30)
[2017-08-24] MEDS: BUDESONIDE 180MCG INHALER (PULMICORT FLEXHALER) INH ×2 (08:00→20:00)
[2017-08-24] MEDS: POTASSIUM CHLORIDE 10 MEQ SR TABLET PO (08:05)
[2017-08-24] MEDS: busPIRone 10 MG TAB PO ×2 (08:05→20:55)
[2017-08-24] MEDS: predniSONE 20 MG TAB PO (08:05)
[2017-08-24] MEDS: MULTIVITAMINS/MINERALS THERAP 1 TAB PO (08:05)
[2017-08-24] MEDS: ASPIRIN ENTERIC 325 MG TAB PO (08:05)
[2017-08-24] MEDS: FEBUXOSTAT 40 MG TABLET (ULORIC) PO (08:05)
[2017-08-24] MEDS: TORSEMIDE 20 MG TAB PO ×2 (08:06→17:03)
[2017-08-24] MEDS: CARVedilol 12.5 MG TAB PO ×2 (08:09→20:55)
[2017-08-24] MEDS: ISOSORBIDE MON. (IMDUR) 30 MG XR TAB PO ×2 (08:09→20:55)
[2017-08-24] MEDS: HEPARIN DRIP 25,000 UNITS in APPROPRIATE DILUENT 1 EA IV (08:21)
[2017-08-24 08:54] LABS: HEMATOCRIT 40.9 % (42.0-52.0); HEMOGLOBIN 13.4 g/dl (13.5-17.5); MEAN CORPUSCULAR HEMOGLOBIN 32.7 pg (27.0-33.0); MEAN CORPUSCULAR HGB CONC 32.8 g/dl (32.0-36.5); MEAN CORPUSCULAR VOLUME 99.8 fl (80.0-96.0); PLATELET COUNT, AUTOMATED 242 10^3/uL (150-450); WHITE BLOOD COUNT 8.6 10^3/uL (4.0-10.0)
[2017-08-24 09:02] LABS: PARTIAL THROMBOPLASTIN TIME 32.2 SECONDS (25.4-37.6)
[2017-08-24 12:25] LABS: BEDSIDE GLUCOSE 529 MG/DL (83-110)
[2017-08-24 12:48] LABS: BEDSIDE GLUCOSE CONFIRMATION 565 MG/DL (LESS THAN 200)
[2017-08-24 14:50] LABS: PARTIAL THROMBOPLASTIN TIME 92.8 SECONDS (25.4-37.6)
[2017-08-24 16:54] LABS: BEDSIDE GLUCOSE 600 MG/DL (83-110)
[2017-08-24] MEDS: guaiFENesin ER 600 MG TAB PO (17:04)
[2017-08-24 17:46] LABS: BEDSIDE GLUCOSE CONFIRMATION 557 MG/DL (LESS THAN 200)
[2017-08-24] MEDS: PRAVASTATIN 20 MG TAB PO (20:54)
[2017-08-24] MEDS: LEVOTHYROXINE 137MCG TABLET (0.137MG) PO (20:55)
[2017-08-24] MEDS: AZITHROMYCIN 250 MG TAB PO (20:55)
[2017-08-24 21:13] LABS: PARTIAL THROMBOPLASTIN TIME 117.5 SECONDS (25.4-37.6)
[2017-08-24] MEDS ORDERED: MORPHINE 4 MG/ML 1ML VIAL/SYRINGE (J2270) As Ordered (22:46)
[2017-08-24 22:57] LABS: BEDSIDE GLUCOSE 564 MG/DL (83-110)
[2017-08-24] MEDS: HUMULIN R U INSULIN SQ (23:23)
[2017-08-24 23:55] LABS: BEDSIDE GLUCOSE CONFIRMATION 595 MG/DL (LESS THAN 200)
[2017-08-25] MEDS: IPRATROPIUM 0.5MG/ALBUTEROL 2.5MG INH SOL UD 3ML (DUONEB)(J7620) NEB ×4 (01:22→20:00)
[2017-08-25 01:47] LABS: CPK CREATINE PHOSPHOKINASE 209 U/L (39-308); TROPONIN I 0.81 NG/ML (< 0.10)
[2017-08-25 04:07] LABS: HEMATOCRIT 41.7 % (42.0-52.0); HEMOGLOBIN 13.8 g/dl (13.5-17.5); MEAN CORPUSCULAR HEMOGLOBIN 32.9 pg (27.0-33.0); MEAN CORPUSCULAR HGB CONC 33.1 g/dl (32.0-36.5); MEAN CORPUSCULAR VOLUME 99.5 fl (80.0-96.0); PLATELET COUNT, AUTOMATED 282 10^3/uL (150-450); RED BLOOD COUNT 4.19 10^6/uL (4.30-6.10); RED CELL DISTRIBUTION WIDTH 16.9 % (11.5-14.5); WHITE BLOOD COUNT 14.8 10^3/uL (4.0-10.0)
[2017-08-25 04:18] LABS: PARTIAL THROMBOPLASTIN TIME 94.8 SECONDS (25.4-37.6)
[2017-08-25 04:24] LABS: ANION GAP 11 MEQ/L (8-16); BLOOD UREA NITROGEN 68 MG/DL (7-18); CALCIUM LEVEL 9.4 MG/DL (8.8-10.2); CARBON DIOXIDE LEVEL 28 MEQ/L (21-32); CHLORIDE LEVEL 101 MEQ/L (98-107); CREATININE FOR GFR 2.36 MG/DL (0.70-1.30); GLOMERULAR FILTRATION RATE 28.6 (>42); GLUCOSE, FASTING 374 MG/DL (70-100); POTASSIUM SERUM 4.1 MEQ/L (3.5-5.1); SODIUM LEVEL 140 MEQ/L (136-145)
[2017-08-25] MEDS: guaiFENesin DM LIQ 10ML UD PO ×3 (04:46→20:34)
[2017-08-25] MEDS: HEPARIN DRIP 25,000 UNITS in APPROPRIATE DILUENT 1 EA IV (05:50)
[2017-08-25 07:38] LABS: BEDSIDE GLUCOSE 288 MG/DL (83-110)
[2017-08-25] MEDS: HUMULIN R U INSULIN SQ ×5 (08:00→20:35)
[2017-08-25] MEDS: FEBUXOSTAT 40 MG TABLET (ULORIC) PO (08:13)
[2017-08-25] MEDS: TORSEMIDE 20 MG TAB PO (08:13)
[2017-08-25] MEDS: busPIRone 10 MG TAB PO ×2 (08:16→20:32)
[2017-08-25] MEDS: ASPIRIN ENTERIC 325 MG TAB PO (08:16)
[2017-08-25] MEDS: MULTIVITAMINS/MINERALS THERAP 1 TAB PO (08:16)
[2017-08-25] MEDS: POTASSIUM CHLORIDE 10 MEQ SR TABLET PO (08:16)
[2017-08-25] MEDS: CARVedilol 12.5 MG TAB PO ×2 (08:16→20:33)
[2017-08-25] MEDS: predniSONE 20 MG TAB PO (08:16)
[2017-08-25] MEDS: ISOSORBIDE MON. (IMDUR) 30 MG XR TAB PO ×2 (08:17→20:32)
[2017-08-25 10:01] LABS: PARTIAL THROMBOPLASTIN TIME 87.9 SECONDS (25.4-37.6)
[2017-08-25] MEDS: BUDESONIDE 180MCG INHALER (PULMICORT FLEXHALER) INH ×2 (11:04→20:10)
[2017-08-25 12:00] LABS: BEDSIDE GLUCOSE 299 MG/DL (83-110)
[2017-08-25 14:01] LABS: BEDSIDE GLUCOSE > 600 MG/DL (83-110)
[2017-08-25] MEDS: NORCO, ANEXSIA 5/325MG TABLET (HYDROcodone/ACETAMINOPHEN) PO (16:52)
[2017-08-25 17:15] LABS: BEDSIDE GLUCOSE 307 MG/DL (83-110)
[2017-08-25 20:21] LABS: BEDSIDE GLUCOSE 399 MG/DL (83-110)
[2017-08-25] MEDS: PRAVASTATIN 20 MG TAB PO (20:32)
[2017-08-25] MEDS: AZITHROMYCIN 250 MG TAB PO (20:32)
[2017-08-25] MEDS: LEVOTHYROXINE 137MCG TABLET (0.137MG) PO (20:33)
[2017-08-26] MEDS: IPRATROPIUM 0.5MG/ALBUTEROL 2.5MG INH SOL UD 3ML (DUONEB)(J7620) NEB ×4 (02:00→20:52)
[2017-08-26] MEDS: guaiFENesin DM LIQ 10ML UD PO ×3 (02:12→23:35)
[2017-08-26 02:13] LABS: MAGNESIUM LEVEL 2.6 MG/DL (1.8-2.4)
[2017-08-26 05:55] LABS: HEMATOCRIT 39.2 % (42.0-52.0); HEMOGLOBIN 12.9 g/dl (13.5-17.5); MEAN CORPUSCULAR HEMOGLOBIN 32.7 pg (27.0-33.0); MEAN CORPUSCULAR HGB CONC 32.9 g/dl (32.0-36.5); MEAN CORPUSCULAR VOLUME 99.5 fl (80.0-96.0); PLATELET COUNT, AUTOMATED 260 10^3/uL (150-450); RED BLOOD COUNT 3.94 10^6/uL (4.30-6.10); RED CELL DISTRIBUTION WIDTH 16.7 % (11.5-14.5); WHITE BLOOD COUNT 13.6 10^3/uL (4.0-10.0)
[2017-08-26 06:14] LABS: PARTIAL THROMBOPLASTIN TIME 90.6 SECONDS (25.4-37.6)
[2017-08-26 06:25] LABS: ANION GAP 11 MEQ/L (8-16); BLOOD UREA NITROGEN 66 MG/DL (7-18); CALCIUM LEVEL 9.1 MG/DL (8.8-10.2); CARBON DIOXIDE LEVEL 27 MEQ/L (21-32); CHLORIDE LEVEL 103 MEQ/L (98-107); CREATININE FOR GFR 2.08 MG/DL (0.70-1.30); GLOMERULAR FILTRATION RATE 33.1 (>42); GLUCOSE, FASTING 99 MG/DL (70-100); SODIUM LEVEL 141 MEQ/L (136-145)
[2017-08-26 06:35] LABS: POTASSIUM SERUM 3.2 MEQ/L (3.5-5.1)
[2017-08-26] MEDS: BUDESONIDE 180MCG INHALER (PULMICORT FLEXHALER) INH ×2 (07:49→20:58)
[2017-08-26] MEDS: ASPIRIN ENTERIC 325 MG TAB PO (08:37)
[2017-08-26] MEDS: MULTIVITAMINS/MINERALS THERAP 1 TAB PO (08:37)
[2017-08-26] MEDS: POTASSIUM CHLORIDE 10 MEQ SR TABLET PO ×2 (08:37→09:20)
[2017-08-26] MEDS: HUMULIN R U INSULIN SQ ×4 (08:37→20:46)
[2017-08-26] MEDS: busPIRone 10 MG TAB PO ×2 (08:37→20:45)
[2017-08-26] MEDS: azaTHIOprine 50 MG TAB (J7500) PO (08:38)
[2017-08-26] MEDS: predniSONE 20 MG TAB PO (08:38)
[2017-08-26] MEDS: FEBUXOSTAT 40 MG TABLET (ULORIC) PO (08:38)
[2017-08-26] MEDS: CARVedilol 12.5 MG TAB PO ×2 (09:19→20:46)
[2017-08-26] MEDS: ISOSORBIDE MON. (IMDUR) 30 MG XR TAB PO ×2 (09:20→20:45)
[2017-08-26 11:41] LABS: BEDSIDE GLUCOSE 125 MG/DL (83-110)
[2017-08-26] MEDS ORDERED: SLF 3 ML SYR IV (12:15)
[2017-08-26] MEDS: SLF 3 ML SYR IV ×2 (14:00→21:39)
[2017-08-26] MEDS: TORSEMIDE 20 MG TAB PO (17:00)
[2017-08-26 17:07] LABS: BEDSIDE GLUCOSE 289 MG/DL (83-110)
[2017-08-26 20:45] LABS: BEDSIDE GLUCOSE 405 MG/DL (83-110)
[2017-08-26] MEDS: AZITHROMYCIN 250 MG TAB PO (20:45)
[2017-08-26] MEDS: LEVOTHYROXINE 137MCG TABLET (0.137MG) PO (20:45)
[2017-08-26] MEDS: PRAVASTATIN 20 MG TAB PO (20:45)
[2017-08-27] MEDS: IPRATROPIUM 0.5MG/ALBUTEROL 2.5MG INH SOL UD 3ML (DUONEB)(J7620) NEB ×4 (02:00→20:00)
[2017-08-27] MEDS: SLF 3 ML SYR IV ×3 (05:49→21:19)
[2017-08-27 05:50] LABS: HEMATOCRIT 40.2 % (42.0-52.0); HEMOGLOBIN 13.3 g/dl (13.5-17.5); MEAN CORPUSCULAR HEMOGLOBIN 33.5 pg (27.0-33.0); MEAN CORPUSCULAR HGB CONC 33.1 g/dl (32.0-36.5); MEAN CORPUSCULAR VOLUME 101.3 fl (80.0-96.0); PLATELET COUNT, AUTOMATED 252 10^3/uL (150-450); RED BLOOD COUNT 3.97 10^6/uL (4.30-6.10); RED CELL DISTRIBUTION WIDTH 16.9 % (11.5-14.5); WHITE BLOOD COUNT 13.1 10^3/uL (4.0-10.0)
[2017-08-27 06:09] LABS: ANION GAP 8 MEQ/L (8-16); BLOOD UREA NITROGEN 58 MG/DL (7-18); CALCIUM LEVEL 9.5 MG/DL (8.8-10.2); CARBON DIOXIDE LEVEL 29 MEQ/L (21-32); CHLORIDE LEVEL 106 MEQ/L (98-107); CREATININE FOR GFR 1.98 MG/DL (0.70-1.30); GLOMERULAR FILTRATION RATE 35.1 (>42); GLUCOSE, FASTING 58 MG/DL (70-100); POTASSIUM SERUM 3.8 MEQ/L (3.5-5.1); SODIUM LEVEL 143 MEQ/L (136-145)
[2017-08-27] MEDS: DEXTROSE 50% 50 ML SYRINGE IV (06:27)
[2017-08-27 06:47] LABS: BEDSIDE GLUCOSE 138 MG/DL (83-110)
[2017-08-27] MEDS: guaiFENesin DM LIQ 10ML UD PO ×2 (07:13→23:35)
[2017-08-27] MEDS: BUDESONIDE 180MCG INHALER (PULMICORT FLEXHALER) INH ×2 (07:35→22:30)
[2017-08-27 07:48] LABS: BEDSIDE GLUCOSE 76 MG/DL (83-110)
[2017-08-27] MEDS: HUMULIN R U INSULIN SQ ×2 (08:02→13:23)
[2017-08-27] MEDS: busPIRone 10 MG TAB PO ×2 (09:04→21:19)
[2017-08-27] MEDS: ASPIRIN ENTERIC 325 MG TAB PO (09:04)
[2017-08-27] MEDS: FEBUXOSTAT 40 MG TABLET (ULORIC) PO (09:04)
[2017-08-27] MEDS: POTASSIUM CHLORIDE 10 MEQ SR TABLET PO (09:05)
[2017-08-27] MEDS: MULTIVITAMINS/MINERALS THERAP 1 TAB PO (09:05)
[2017-08-27] MEDS: predniSONE 20 MG TAB PO (09:05)
[2017-08-27] MEDS: CARVedilol 12.5 MG TAB PO ×2 (09:07→21:18)
[2017-08-27] MEDS: ISOSORBIDE MON. (IMDUR) 30 MG XR TAB PO ×2 (09:07→21:19)
[2017-08-27] MEDS: TORSEMIDE 20 MG TAB PO ×2 (11:21→17:44)
[2017-08-27 12:06] LABS: BEDSIDE GLUCOSE 139 MG/DL (83-110)
[2017-08-27] MEDS: DOXYCYCLINE HYCLATE 100 MG TAB PO ×2 (13:29→21:19)
[2017-08-27 16:58] LABS: BEDSIDE GLUCOSE 196 MG/DL (83-110)
[2017-08-27] MEDS: HUMULIN R U-500 KWIKPEN 500UNITS/ML 3ML SYRINGE (J1815 PER 5UNITS) SQ ×2 (18:56→22:34)
[2017-08-27] MEDS: PEN NEEDLE (USE WITH HUMULIN U-500 INSULIN PEN) XX ×2 (18:56→22:34)
[2017-08-27 19:18] LABS: BEDSIDE GLUCOSE 289 MG/DL (83-110)
[2017-08-27] MEDS: PRAVASTATIN 20 MG TAB PO (21:18)
[2017-08-27] MEDS: LEVOTHYROXINE 137MCG TABLET (0.137MG) PO (21:18)
[2017-08-27 22:31] LABS: BEDSIDE GLUCOSE 254 MG/DL (83-110)
[2017-08-28] MEDS: IPRATROPIUM 0.5MG/ALBUTEROL 2.5MG INH SOL UD 3ML (DUONEB)(J7620) NEB ×4 (02:00→21:21)
[2017-08-28] MEDS: guaiFENesin ER 600 MG TAB PO (03:38)
[2017-08-28] MEDS: SLF 3 ML SYR IV ×3 (05:14→21:45)
[2017-08-28 06:04] LABS: HEMATOCRIT 41.1 % (42.0-52.0); HEMOGLOBIN 13.6 g/dl (13.5-17.5); MEAN CORPUSCULAR HEMOGLOBIN 33.2 pg (27.0-33.0); MEAN CORPUSCULAR HGB CONC 33.1 g/dl (32.0-36.5); MEAN CORPUSCULAR VOLUME 100.2 fl (80.0-96.0); PLATELET COUNT, AUTOMATED 271 10^3/uL (150-450); RED CELL DISTRIBUTION WIDTH 16.9 % (11.5-14.5); WHITE BLOOD COUNT 13.8 10^3/uL (4.0-10.0)
[2017-08-28 06:27] LABS: ANION GAP 9 MEQ/L (8-16); BLOOD UREA NITROGEN 57 MG/DL (7-18); CALCIUM LEVEL 9.2 MG/DL (8.8-10.2); CARBON DIOXIDE LEVEL 29 MEQ/L (21-32); CHLORIDE LEVEL 102 MEQ/L (98-107); CREATININE FOR GFR 2.09 MG/DL (0.70-1.30); GLOMERULAR FILTRATION RATE 32.9 (>42); GLUCOSE, FASTING 175 MG/DL (70-100); POTASSIUM SERUM 3.8 MEQ/L (3.5-5.1); SODIUM LEVEL 140 MEQ/L (136-145)
[2017-08-28] MEDS: BUDESONIDE 180MCG INHALER (PULMICORT FLEXHALER) INH ×2 (07:34→21:18)
[2017-08-28] MEDS: HUMULIN R U-500 KWIKPEN 500UNITS/ML 3ML SYRINGE (J1815 PER 5UNITS) SQ ×4 (09:03→21:40)
[2017-08-28] MEDS: MULTIVITAMINS/MINERALS THERAP 1 TAB PO (09:03)
[2017-08-28] MEDS: PEN NEEDLE (USE WITH HUMULIN U-500 INSULIN PEN) XX ×4 (09:03→21:40)
[2017-08-28] MEDS: POTASSIUM CHLORIDE 10 MEQ SR TABLET PO (09:03)
[2017-08-28] MEDS: ASPIRIN ENTERIC 325 MG TAB PO (09:04)
[2017-08-28] MEDS: ISOSORBIDE MON. (IMDUR) 30 MG XR TAB PO ×2 (09:04→21:38)
[2017-08-28] MEDS: predniSONE 20 MG TAB PO (09:04)
[2017-08-28] MEDS: azaTHIOprine 50 MG TAB (J7500) PO (09:05)
[2017-08-28] MEDS: FEBUXOSTAT 40 MG TABLET (ULORIC) PO (09:05)
[2017-08-28] MEDS: DOXYCYCLINE HYCLATE 100 MG TAB PO ×2 (09:05→21:38)
[2017-08-28] MEDS: busPIRone 10 MG TAB PO ×2 (09:05→21:36)
[2017-08-28] MEDS: TORSEMIDE 20 MG TAB PO ×2 (09:06→17:20)
[2017-08-28] MEDS: CARVedilol 12.5 MG TAB PO ×2 (09:06→21:37)
[2017-08-28 11:54] LABS: BEDSIDE GLUCOSE 282 MG/DL (83-110)
[2017-08-28 17:09] LABS: BEDSIDE GLUCOSE 305 MG/DL (83-110)
[2017-08-28 20:38] LABS: BEDSIDE GLUCOSE 403 MG/DL (83-110)
[2017-08-28] MEDS: NITROGLYCERIN 0.4 MG SUBL TABLET SL (21:03)
[2017-08-28] MEDS: PRAVASTATIN 20 MG TAB PO (21:38)
[2017-08-28] MEDS: LEVOTHYROXINE 137MCG TABLET (0.137MG) PO (21:38)
[2017-08-28] MEDS: guaiFENesin DM LIQ 10ML UD PO (22:22)
[2017-08-29] MEDS: IPRATROPIUM 0.5MG/ALBUTEROL 2.5MG INH SOL UD 3ML (DUONEB)(J7620) NEB ×4 (01:13→20:16)
[2017-08-29 03:42] LABS: BEDSIDE GLUCOSE 142 MG/DL (83-110)
[2017-08-29] MEDS: SLF 3 ML SYR IV ×3 (05:25→21:19)
[2017-08-29 05:44] LABS: HEMATOCRIT 42.4 % (42.0-52.0); HEMOGLOBIN 14.2 g/dl (13.5-17.5); MEAN CORPUSCULAR HEMOGLOBIN 33.4 pg (27.0-33.0); MEAN CORPUSCULAR HGB CONC 33.5 g/dl (32.0-36.5); MEAN CORPUSCULAR VOLUME 99.8 fl (80.0-96.0); PLATELET COUNT, AUTOMATED 261 10^3/uL (150-450); RED BLOOD COUNT 4.25 10^6/uL (4.30-6.10); RED CELL DISTRIBUTION WIDTH 16.7 % (11.5-14.5); WHITE BLOOD COUNT 16.6 10^3/uL (4.0-10.0)
[2017-08-29 06:01] LABS: ANION GAP 11 MEQ/L (8-16); BLOOD UREA NITROGEN 61 MG/DL (7-18); CALCIUM LEVEL 9.1 MG/DL (8.8-10.2); CARBON DIOXIDE LEVEL 27 MEQ/L (21-32); CHLORIDE LEVEL 103 MEQ/L (98-107); CREATININE FOR GFR 2.19 MG/DL (0.70-1.30); GLOMERULAR FILTRATION RATE 31.2 (>42); GLUCOSE, FASTING 102 MG/DL (70-100); POTASSIUM SERUM 3.6 MEQ/L (3.5-5.1); SODIUM LEVEL 141 MEQ/L (136-145)
[2017-08-29] MEDS: BUDESONIDE 180MCG INHALER (PULMICORT FLEXHALER) INH ×2 (07:35→20:16)
[2017-08-29] MEDS: DOXYCYCLINE HYCLATE 100 MG TAB PO ×2 (08:08→21:17)
[2017-08-29] MEDS: PEN NEEDLE (USE WITH HUMULIN U-500 INSULIN PEN) XX ×4 (08:08→21:18)
[2017-08-29] MEDS: HUMULIN R U-500 KWIKPEN 500UNITS/ML 3ML SYRINGE (J1815 PER 5UNITS) SQ ×4 (08:08→21:18)
[2017-08-29] MEDS: CARVedilol 12.5 MG TAB PO ×2 (08:09→21:17)
[2017-08-29] MEDS: ASPIRIN ENTERIC 325 MG TAB PO (08:09)
[2017-08-29] MEDS: TORSEMIDE 20 MG TAB PO (08:09)
[2017-08-29] MEDS: MULTIVITAMINS/MINERALS THERAP 1 TAB PO (08:10)
[2017-08-29] MEDS: ISOSORBIDE MON. (IMDUR) 30 MG XR TAB PO ×2 (08:10→21:17)
[2017-08-29] MEDS: POTASSIUM CHLORIDE 10 MEQ SR TABLET PO (08:10)
[2017-08-29] MEDS: FEBUXOSTAT 40 MG TABLET (ULORIC) PO (08:11)
[2017-08-29] MEDS: predniSONE 10 MG TAB PO (08:11)
[2017-08-29] MEDS: busPIRone 10 MG TAB PO ×2 (08:11→21:16)
[2017-08-29] MEDS: NITROGLYCERIN 0.4 MG SUBL TABLET SL ×2 (10:10→10:25)
[2017-08-29 11:26] LABS: BEDSIDE GLUCOSE 243 MG/DL (83-110)
[2017-08-29 17:10] LABS: BEDSIDE GLUCOSE 322 MG/DL (83-110)
[2017-08-29 20:59] LABS: BEDSIDE GLUCOSE 378 MG/DL (83-110)
[2017-08-29] MEDS: PRAVASTATIN 20 MG TAB PO (21:17)
[2017-08-29] MEDS: LEVOTHYROXINE 137MCG TABLET (0.137MG) PO (21:32)
[2017-08-30] MEDS: IPRATROPIUM 0.5MG/ALBUTEROL 2.5MG INH SOL UD 3ML (DUONEB)(J7620) NEB ×2 (02:00→07:13)
[2017-08-30] MEDS: SLF 3 ML SYR IV (04:03)
[2017-08-30 05:53] LABS: HEMATOCRIT 37.3 % (42.0-52.0); HEMOGLOBIN 12.5 g/dl (13.5-17.5); MEAN CORPUSCULAR HEMOGLOBIN 32.9 pg (27.0-33.0); MEAN CORPUSCULAR HGB CONC 33.5 g/dl (32.0-36.5); MEAN CORPUSCULAR VOLUME 98.2 fl (80.0-96.0); PLATELET COUNT, AUTOMATED 227 10^3/uL (150-450); RED CELL DISTRIBUTION WIDTH 16.6 % (11.5-14.5); WHITE BLOOD COUNT 14.4 10^3/uL (4.0-10.0)
[2017-08-30 06:16] LABS: ANION GAP 9 MEQ/L (8-16); BLOOD UREA NITROGEN 57 MG/DL (7-18); CALCIUM LEVEL 8.8 MG/DL (8.8-10.2); CARBON DIOXIDE LEVEL 28 MEQ/L (21-32); CHLORIDE LEVEL 102 MEQ/L (98-107); CREATININE FOR GFR 1.93 MG/DL (0.70-1.30); GLOMERULAR FILTRATION RATE 36.1 (>42); GLUCOSE, FASTING 72 MG/DL (70-100); POTASSIUM SERUM 3.2 MEQ/L (3.5-5.1); SODIUM LEVEL 139 MEQ/L (136-145)
[2017-08-30] MEDS: BUDESONIDE 180MCG INHALER (PULMICORT FLEXHALER) INH (07:12)
[2017-08-30] MEDS: PEN NEEDLE (USE WITH HUMULIN U-500 INSULIN PEN) XX (08:00)
[2017-08-30] MEDS: ASPIRIN ENTERIC 325 MG TAB PO (08:21)
[2017-08-30] MEDS: guaiFENesin ER 600 MG TAB PO (08:22)
[2017-08-30] MEDS: FEBUXOSTAT 40 MG TABLET (ULORIC) PO (08:22)
[2017-08-30] MEDS: CARVedilol 12.5 MG TAB PO (08:24)
[2017-08-30] MEDS: ISOSORBIDE MON. (IMDUR) 30 MG XR TAB PO (08:25)
[2017-08-30] MEDS: POTASSIUM CHLORIDE 10 MEQ SR TABLET PO (08:25)
[2017-08-30] MEDS: MULTIVITAMINS/MINERALS THERAP 1 TAB PO (08:25)
[2017-08-30] MEDS: azaTHIOprine 50 MG TAB (J7500) PO (08:26)
[2017-08-30] MEDS: predniSONE 10 MG TAB PO (08:26)
[2017-08-30] MEDS: DOXYCYCLINE HYCLATE 100 MG TAB PO (08:27)
[2017-08-30] MEDS: busPIRone 10 MG TAB PO (08:27)
[2017-08-30] MEDS: guaiFENesin DM LIQ 10ML UD PO (08:27)
[2017-08-30] MEDS: HUMULIN R U-500 KWIKPEN 500UNITS/ML 3ML SYRINGE (J1815 PER 5UNITS) SQ (08:28)
[2017-08-30] MEDS ORDERED: TORSEMIDE 20 MG TAB PO (09:00)
[2017-08-30] MEDS ORDERED: POTASSIUM CHLORIDE 10 MEQ SR TABLET PO (11:15)
== END 2017-08-30 12:23 | disposition home or self-care (01) | DRG 291 ==
LOC: M PCU 08-24 10:14 → M ED 17:40 → M ED INP 20:35 → M MSPAV 22:05
DX: I13.0 Hypertensive heart and chronic kidney disease with heart failure and stage 1 through stage 4 chronic kidney disease, or unspecified chronic kidney disease (principal); I50.23 Acute on chronic systolic (congestive) heart failure; K51.90 Ulcerative colitis, unspecified, without complications; N17.9 Acute kidney failure, unspecified; J44.1 Chronic obstructive pulmonary disease with (acute) exacerbation; I25.110 Atherosclerotic heart disease of native coronary artery with unstable angina pectoris; E11.22 Type 2 diabetes mellitus with diabetic chronic kidney disease; I25.5 Ischemic cardiomyopathy; N18.3 Chronic kidney disease, stage 3 (moderate); E03.9 Hypothyroidism, unspecified; F41.9 Anxiety disorder, unspecified; F32.9 Major depressive disorder, single episode, unspecified; E78.5 Hyperlipidemia, unspecified; M10.9 Gout, unspecified; H81.10 Benign paroxysmal vertigo, unspecified ear; Z95.810 Presence of automatic (implantable) cardiac defibrillator; Z95.5 Presence of coronary angioplasty implant and graft; Z79.82 Long term (current) use of aspirin; Z79.891 Long term (current) use of opiate analgesic; Z79.899 Other long term (current) drug therapy; Z88.8 Allergy status to other drugs, medicaments and biological substances; Z87.891 Personal history of nicotine dependence; M54.9 Dorsalgia, unspecified

== ENCOUNTER → 2017-09-09 | Outpatient (CLI) | payer MEDICARE, BC ==
[2017-09-09 10:05] LABS: ESTIMATED AVERAGE GLUCOSE 226 MG/DL (60-110); HEMOGLOBIN A1c 9.5 %
[2017-09-09 10:10] LABS: ANION GAP 9 MEQ/L (8-16); BLOOD UREA NITROGEN 50 MG/DL (7-18); CALCIUM LEVEL 8.8 MG/DL (8.8-10.2); CARBON DIOXIDE LEVEL 30 MEQ/L (21-32); CHLORIDE LEVEL 102 MEQ/L (98-107); CREATININE FOR GFR 2.04 MG/DL (0.70-1.30); GLOMERULAR FILTRATION RATE 33.9 (>42); GLUCOSE, FASTING 258 MG/DL (70-100); POTASSIUM SERUM 4.1 MEQ/L (3.5-5.1); SODIUM LEVEL 141 MEQ/L (136-145); URIC ACID 5.6 MG/DL (3.5-7.2)
[2017-09-09 10:21] LABS: CREATININE, URINE 49.4 MG/DL; MALB URINE SIEMENS 32.9 MG/L; MAU/CREAT RATIO 66.5 MCG/MG (0.0-30.0)
== END ==
LOC: M LAB 09:19
DX: E11.65 Type 2 diabetes mellitus with hyperglycemia (principal); E87.6 Hypokalemia; N18.3 Chronic kidney disease, stage 3 (moderate); E11.22 Type 2 diabetes mellitus with diabetic chronic kidney disease
CPT/HCPCS: 84550

== ENCOUNTER 2017-10-24 06:42 | Inpatient (IN) | payer MEDICARE, BC ==
[2017-10-24] MEDS: ONDANSETRON 4MG/2ML VIAL (J2405) IV (08:19)
[2017-10-24] MEDS: MORPHINE 4 MG/ML 1ML VIAL/SYRINGE (J2270) IV ×2 (08:19→08:50)
[2017-10-24 08:23] LABS: BASO # 0.1 10^3/uL (0.0-0.2); BASO % 0.5 % (0.0-1.0); EOS # 0.1 10^3/uL (0.0-0.50); EOS % 0.3 % (0.0-3.0); HEMATOCRIT 38.7 % (42.0-52.0); HEMOGLOBIN 12.3 g/dl (13.5-17.5); IMMATURE GRANULOCYTE % 1.7 % (0-3.0); LYMPH # 0.7 10^3/uL (1.5-4.5); LYMPH % 3.3 % (24.0-44.0); MEAN CORPUSCULAR HEMOGLOBIN 33.4 pg (27.0-33.0); MEAN CORPUSCULAR HGB CONC 31.8 g/dl (32.0-36.5); MEAN CORPUSCULAR VOLUME 105.2 fl (80.0-96.0); MONO # 0.7 10^3/uL (0.0-0.8); MONO % 3.3 % (0.0-5.0); NEUTROPHILS # 20.1 10^3/uL (1.8-7.7); NEUTROPHILS % 90.9 % (36.0-66.0); PLATELET COUNT, AUTOMATED 204 10^3/uL (150-450); RED BLOOD COUNT 3.68 10^6/uL (4.30-6.10); RED CELL DISTRIBUTION WIDTH 16.1 % (11.5-14.5); WHITE BLOOD COUNT 22.1 10^3/uL (4.0-10.0)
[2017-10-24 08:37] LABS: INR 1.03; PARTIAL THROMBOPLASTIN TIME 29.3 SECONDS (25.4-37.6); PROTHROMBIN TIME 13.6 SECONDS (12.1-14.4)
[2017-10-24 08:50] LABS: ANION GAP 10 MEQ/L (8-16); BLOOD UREA NITROGEN 46 MG/DL (7-18); C REACTIVE PROTEIN QUANTITATIV 7.44 MG/DL (0.00-0.30); CALCIUM LEVEL 8.5 MG/DL (8.8-10.2); CARBON DIOXIDE LEVEL 24 MEQ/L (21-32); CHLORIDE LEVEL 102 MEQ/L (98-107); CREATININE FOR GFR 2.36 MG/DL (0.70-1.30); GLOMERULAR FILTRATION RATE 28.6 (>42); GLUCOSE, FASTING 412 MG/DL (70-100); POTASSIUM SERUM 4.1 MEQ/L (3.5-5.1); SODIUM LEVEL 136 MEQ/L (136-145)
[2017-10-24 08:54] LABS: ERYTHROCYTE SEDIMENTATION RATE 39 mm/hr (0-20)
[2017-10-24] MEDS ORDERED: MECLIZINE 25 MG TABLET PO (09:00)
[2017-10-24] MEDS: KETOCONAZOLE 2% CREAM TOP ×2 (09:00→22:18)
[2017-10-24] MEDS: CARVedilol 12.5 MG TAB PO ×2 (09:00→22:19)
[2017-10-24] MEDS: ceFAZolin SOD 1 GM in D5W MINI-BAG PLUS 50 ML IV (09:40)
[2017-10-24] MEDS: RIVAROXABAN 15 MG TAB (XARELTO) PO ×2 (10:22→22:20)
[2017-10-24] MEDS ORDERED: RIVAROXABAN 15 MG TAB (XARELTO) PO (11:00)
[2017-10-24] MEDS ORDERED: DEXTROSE 50% 50 ML SYRINGE IV (11:00)
[2017-10-24] MEDS ORDERED: GLUCOSE 4 GM CHEW TABLET PO (11:00)
[2017-10-24] MEDS ORDERED: GLUCAGON FOR INJ 1 MG VIAL (J1610) SC (11:00)
[2017-10-24 11:28] LABS: BEDSIDE GLUCOSE 399 MG/DL (83-110)
[2017-10-24] MEDS ORDERED: CEFTAROLINE FOSAMIL 600 MG in D5W MINI-BAG PLUS 50 ML IV (11:30)
[2017-10-24] MEDS: PEN NEEDLE (USE WITH HUMULIN U-500 INSULIN PEN) XX ×3 (12:00→22:20)
[2017-10-24] MEDS ORDERED: HumaLOG INSULIN (NovoLOG) PER UNIT SC ×2 (12:00→21:00)
[2017-10-24 12:52] LABS: BEDSIDE GLUCOSE 385 MG/DL (83-110)
[2017-10-24] MEDS: busPIRone 10 MG TAB PO ×2 (12:53→22:20)
[2017-10-24] MEDS: HUMULIN R U-500 KWIKPEN 500UNITS/ML 3ML SYRINGE (J1815 PER 5UNITS) SQ ×3 (12:57→22:18)
[2017-10-24] MEDS: ASPIRIN 325 MG TAB PO (13:00)
[2017-10-24] MEDS: PERCOCET 5MG/325MG TAB PO (15:15)
[2017-10-24 17:12] LABS: BEDSIDE GLUCOSE 323 MG/DL (83-110)
[2017-10-24] MEDS: CEFTAROLINE FOSAMIL 400 MG in D5W MINI-BAG PLUS 50 ML IV (18:17)
[2017-10-24 22:13] LABS: BEDSIDE GLUCOSE 236 MG/DL (83-110)
[2017-10-24] MEDS: LEVOTHYROXINE 137MCG TABLET (0.137MG) PO (22:19)
[2017-10-24] MEDS: MECLIZINE 25 MG TABLET PO (22:19)
[2017-10-24] MEDS: PRAVASTATIN 20 MG TAB PO (22:19)
[2017-10-25] MEDS: PERCOCET 5MG/325MG TAB PO ×3 (00:11→15:44)
[2017-10-25] MEDS: CEFTAROLINE FOSAMIL 400 MG in D5W MINI-BAG PLUS 50 ML IV ×2 (04:28→15:44)
[2017-10-25 06:11] LABS: HEMATOCRIT 37.2 % (42.0-52.0); MEAN CORPUSCULAR HEMOGLOBIN 33.3 pg (27.0-33.0); MEAN CORPUSCULAR HGB CONC 32.3 g/dl (32.0-36.5); MEAN CORPUSCULAR VOLUME 103.3 fl (80.0-96.0); PLATELET COUNT, AUTOMATED 178 10^3/uL (150-450); RED CELL DISTRIBUTION WIDTH 16.1 % (11.5-14.5); WHITE BLOOD COUNT 17.2 10^3/uL (4.0-10.0)
[2017-10-25 06:38] LABS: ALBUMIN 2.8 GM/DL (3.2-5.2); ALBUMIN/GLOBULIN RATIO 0.67 (1.00-1.93); ALKALINE PHOSPHATASE 50 U/L (45-117); ALT/SGPT 85 U/L (12-78); ANION GAP 9 MEQ/L (8-16); AST/SGOT 41 U/L (7-37); BILIRUBIN,TOTAL 0.7 MG/DL (0.2-1.0); BLOOD UREA NITROGEN 47 MG/DL (7-18); CALCIUM LEVEL 9.1 MG/DL (8.8-10.2); CARBON DIOXIDE LEVEL 25 MEQ/L (21-32); CHLORIDE LEVEL 101 MEQ/L (98-107); CREATININE FOR GFR 2.58 MG/DL (0.70-1.30); GLOMERULAR FILTRATION RATE 25.8 (>42); GLUCOSE, FASTING 184 MG/DL (70-100); POTASSIUM SERUM 4.2 MEQ/L (3.5-5.1); SODIUM LEVEL 135 MEQ/L (136-145)
[2017-10-25] MEDS: NITROGLYCERIN 0.4 MG SUBL TABLET SL (07:08)
[2017-10-25] MEDS: PEN NEEDLE (USE WITH HUMULIN U-500 INSULIN PEN) XX ×4 (08:00→21:00)
[2017-10-25] MEDS ORDERED: SLF 3 ML SYR IV (08:15)
[2017-10-25] MEDS: busPIRone 10 MG TAB PO ×2 (08:59→22:13)
[2017-10-25] MEDS: CARVedilol 12.5 MG TAB PO ×2 (08:59→21:00)
[2017-10-25] MEDS: RIVAROXABAN 15 MG TAB (XARELTO) PO ×2 (08:59→22:13)
[2017-10-25] MEDS: MECLIZINE 25 MG TABLET PO ×2 (08:59→22:13)
[2017-10-25] MEDS: ASPIRIN 325 MG TAB PO (08:59)
[2017-10-25] MEDS ORDERED: cefTRIAXone SOD 1 GM in D5W MINI-BAG PLUS 50 ML IV (09:00)
[2017-10-25] MEDS: KETOCONAZOLE 2% CREAM TOP ×2 (09:00→22:18)
[2017-10-25] MEDS: HUMULIN R U-500 KWIKPEN 500UNITS/ML 3ML SYRINGE (J1815 PER 5UNITS) SQ ×4 (09:01→22:16)
[2017-10-25] MEDS: SPIRONOLACTONE 25 MG TAB PO (10:31)
[2017-10-25 10:38] LABS: CPK CREATINE PHOSPHOKINASE 83 U/L (39-308); MB/CK RELATIVE INDEX 3.13 (< OR =4); TROPONIN I 0.33 NG/ML (< 0.10)
[2017-10-25] MEDS: MECLIZINE 12.5 MG TAB PO (12:00)
[2017-10-25 12:13] LABS: BEDSIDE GLUCOSE 248 MG/DL (83-110)
[2017-10-25] MEDS: ENTRESTO 24-26MG TABLET (SACUBITRIL/VALSARTAN) PO (12:47)
[2017-10-25] MEDS: FUROSEMIDE 40 MG/4 ML VIAL (J1940) IV ×2 (12:47→18:00)
[2017-10-25] MEDS: SLF 3 ML SYR IV ×2 (12:49→22:18)
[2017-10-25] MEDS: NS 250 ML IV (16:45)
[2017-10-25] MEDS ORDERED: NS 500 ML IV ×2 (16:45→17:00)
[2017-10-25 17:35] LABS: BEDSIDE GLUCOSE 246 MG/DL (83-110)
[2017-10-25] MEDS: PRAVASTATIN 20 MG TAB PO (22:12)
[2017-10-25] MEDS: LEVOTHYROXINE 137MCG TABLET (0.137MG) PO (22:13)
[2017-10-25 22:16] LABS: BEDSIDE GLUCOSE 224 MG/DL (83-110)
[2017-10-26 03:14] LABS: BEDSIDE GLUCOSE 182 MG/DL (83-110)
[2017-10-26] MEDS: CEFTAROLINE FOSAMIL 400 MG in D5W MINI-BAG PLUS 50 ML IV ×2 (04:12→16:19)
[2017-10-26 05:56] LABS: HEMATOCRIT 36.6 % (42.0-52.0); HEMOGLOBIN 11.7 g/dl (13.5-17.5); MEAN CORPUSCULAR HEMOGLOBIN 33.8 pg (27.0-33.0); MEAN CORPUSCULAR VOLUME 105.8 fl (80.0-96.0); PLATELET COUNT, AUTOMATED 167 10^3/uL (150-450); RED BLOOD COUNT 3.46 10^6/uL (4.30-6.10); RED CELL DISTRIBUTION WIDTH 16.2 % (11.5-14.5); WHITE BLOOD COUNT 12.2 10^3/uL (4.0-10.0)
[2017-10-26] MEDS: SLF 3 ML SYR IV ×3 (06:00→21:38)
[2017-10-26] MEDS: FUROSEMIDE 40 MG/4 ML VIAL (J1940) IV ×2 (06:00)
[2017-10-26 06:39] LABS: ALBUMIN 2.3 GM/DL (3.2-5.2); ALBUMIN/GLOBULIN RATIO 0.58 (1.00-1.93); ALKALINE PHOSPHATASE 47 U/L (45-117); ALT/SGPT 70 U/L (12-78); ANION GAP 9 MEQ/L (8-16); AST/SGOT 64 U/L (7-37); BILIRUBIN,TOTAL 0.7 MG/DL (0.2-1.0); BLOOD UREA NITROGEN 63 MG/DL (7-18); CALCIUM LEVEL 8.7 MG/DL (8.8-10.2); CARBON DIOXIDE LEVEL 24 MEQ/L (21-32); CHLORIDE LEVEL 100 MEQ/L (98-107); GLOMERULAR FILTRATION RATE 15.1 (>42); GLUCOSE, FASTING 163 MG/DL (70-100); POTASSIUM SERUM 4.1 MEQ/L (3.5-5.1); SODIUM LEVEL 133 MEQ/L (136-145); TOTAL PROTEIN 6.3 GM/DL (6.4-8.2)
[2017-10-26] MEDS: PEN NEEDLE (USE WITH HUMULIN U-500 INSULIN PEN) XX ×3 (09:00→17:37)
[2017-10-26] MEDS: HUMULIN R U-500 KWIKPEN 500UNITS/ML 3ML SYRINGE (J1815 PER 5UNITS) SQ ×3 (09:00→17:36)
[2017-10-26] MEDS: MECLIZINE 25 MG TABLET PO ×3 (09:00→21:37)
[2017-10-26] MEDS: CARVedilol 12.5 MG TAB PO ×2 (09:00→21:00)
[2017-10-26] MEDS: ASPIRIN 325 MG TAB PO (09:45)
[2017-10-26] MEDS: busPIRone 10 MG TAB PO ×2 (09:46→21:37)
[2017-10-26] MEDS: KETOCONAZOLE 2% CREAM TOP ×2 (09:46→21:38)
[2017-10-26] MEDS: RIVAROXABAN 15 MG TAB (XARELTO) PO ×2 (09:46→21:37)
[2017-10-26 11:57] LABS: BEDSIDE GLUCOSE 164 MG/DL (83-110)
[2017-10-26] MEDS: MECLIZINE 12.5 MG TAB PO (12:00)
[2017-10-26] MEDS: DOBUTamine HCL 500,000 MCG in APPROPRIATE DILUENT 1 EA IV (13:48)
[2017-10-26 14:39] LABS: KETONE, URINE AUTO RFX NEGATIVE (NEGATIVE); LEUKOCYTE ESTERASE UR AUTO RFX NEGATIVE (NEGATIVE); NITRITE, URINE AUTO RFX NEGATIVE (NEGATIVE); RBC, URINE AUTO RFX 2 /HPF (0-3); SPECIFIC GRAVITY UR AUTO RFX 1.018 (1.002-1.035); SQUAM EPITHELIAL CELL UR AURFX 0 /HPF (0-6); WBC, URINE AUTO RFX 2 /HPF (0-3)
[2017-10-26 16:47] LABS: BEDSIDE GLUCOSE 149 MG/DL (83-110)
[2017-10-26] MEDS: HumaLOG INSULIN (NovoLOG) PER UNIT SC ×2 (18:30→21:00)
[2017-10-26 19:43] LABS: ANION GAP 13 MEQ/L (8-16); BLOOD UREA NITROGEN 72 MG/DL (7-18); CALCIUM LEVEL 8.7 MG/DL (8.8-10.2); CARBON DIOXIDE LEVEL 24 MEQ/L (21-32); CHLORIDE LEVEL 98 MEQ/L (98-107); CREATININE FOR GFR 4.37 MG/DL (0.70-1.30); GLOMERULAR FILTRATION RATE 14.1 (>42); GLUCOSE, FASTING 155 MG/DL (70-100); SODIUM LEVEL 135 MEQ/L (136-145)
[2017-10-26 20:07] LABS: BEDSIDE GLUCOSE 146 MG/DL (83-110)
[2017-10-26] MEDS: LEVOTHYROXINE 137MCG TABLET (0.137MG) PO (21:37)
[2017-10-26] MEDS: PRAVASTATIN 20 MG TAB PO (21:37)
[2017-10-26] MEDS: FUROSEMIDE injection 250 MG in D5W 225 ML IV (21:39)
[2017-10-27] MEDS: SLF 3 ML SYR IV ×3 (04:10→21:14)
[2017-10-27] MEDS: CEFTAROLINE FOSAMIL 400 MG in D5W MINI-BAG PLUS 50 ML IV (04:10)
[2017-10-27 05:38] LABS: HEMATOCRIT 35.5 % (42.0-52.0); HEMOGLOBIN 11.4 g/dl (13.5-17.5); MEAN CORPUSCULAR HEMOGLOBIN 33.1 pg (27.0-33.0); MEAN CORPUSCULAR HGB CONC 32.1 g/dl (32.0-36.5); MEAN CORPUSCULAR VOLUME 103.2 fl (80.0-96.0); PLATELET COUNT, AUTOMATED 204 10^3/uL (150-450); RED BLOOD COUNT 3.44 10^6/uL (4.30-6.10); RED CELL DISTRIBUTION WIDTH 16.2 % (11.5-14.5); WHITE BLOOD COUNT 9.7 10^3/uL (4.0-10.0)
[2017-10-27 06:09] LABS: ALBUMIN 2.2 GM/DL (3.2-5.2); ALKALINE PHOSPHATASE 54 U/L (45-117); ALT/SGPT 64 U/L (12-78); ANION GAP 14 MEQ/L (8-16); AST/SGOT 59 U/L (7-37); BILIRUBIN,TOTAL 0.7 MG/DL (0.2-1.0); BLOOD UREA NITROGEN 79 MG/DL (7-18); CALCIUM LEVEL 8.7 MG/DL (8.8-10.2); CARBON DIOXIDE LEVEL 23 MEQ/L (21-32); CHLORIDE LEVEL 97 MEQ/L (98-107); CREATININE FOR GFR 4.64 MG/DL (0.70-1.30); GLOMERULAR FILTRATION RATE 13.1 (>42); GLUCOSE, FASTING 187 MG/DL (70-100); POTASSIUM SERUM 4.2 MEQ/L (3.5-5.1); SODIUM LEVEL 134 MEQ/L (136-145); TOTAL PROTEIN 6.6 GM/DL (6.4-8.2)
[2017-10-27] MEDS: ASPIRIN 325 MG TAB PO (08:15)
[2017-10-27] MEDS: RIVAROXABAN 15 MG TAB (XARELTO) PO ×2 (08:15→21:14)
[2017-10-27] MEDS: busPIRone 10 MG TAB PO ×2 (08:15→21:15)
[2017-10-27] MEDS: HumaLOG INSULIN (NovoLOG) PER UNIT SC ×4 (08:15→21:00)
[2017-10-27] MEDS: CARVedilol 12.5 MG TAB PO ×2 (08:19→21:16)
[2017-10-27] MEDS: MECLIZINE 25 MG TABLET PO ×2 (09:00→21:00)
[2017-10-27] MEDS: PIPERACILLIN/TAZOBACTAM SOD 2.25 GM in D5W MINI-BAG PLUS 50 ML IV ×2 (09:58→21:14)
[2017-10-27] MEDS: PERCOCET 5MG/325MG TAB PO (09:59)
[2017-10-27] MEDS: KETOCONAZOLE 2% CREAM TOP ×2 (10:00→21:18)
[2017-10-27] MEDS: NS 1,000 ML IV (11:05)
[2017-10-27 11:27] LABS: URIC ACID 9.3 MG/DL (3.5-7.2)
[2017-10-27 11:36] LABS: BEDSIDE GLUCOSE 192 MG/DL (83-110)
[2017-10-27] MEDS: MECLIZINE 12.5 MG TAB PO (12:00)
[2017-10-27 16:55] LABS: BEDSIDE GLUCOSE 165 MG/DL (83-110)
[2017-10-27] MEDS: ONDANSETRON 4MG/2ML VIAL (J2405) IV (17:11)
[2017-10-27 19:52] LABS: BEDSIDE GLUCOSE 181 MG/DL (83-110)
[2017-10-27] MEDS: PRAVASTATIN 20 MG TAB PO (21:14)
[2017-10-27] MEDS: LEVOTHYROXINE 137MCG TABLET (0.137MG) PO (21:15)
[2017-10-27] MEDS: DOBUTamine HCL 500,000 MCG in APPROPRIATE DILUENT 1 EA IV (22:39)
[2017-10-28 01:53] LABS: BEDSIDE GLUCOSE 184 MG/DL (83-110)
[2017-10-28 05:26] LABS: BASO # 0.1 10^3/uL (0.0-0.2); BASO % 0.8 % (0.0-1.0); EOS # 0.1 10^3/uL (0.0-0.50); EOS % 1.3 % (0.0-3.0); HEMATOCRIT 34.9 % (42.0-52.0); HEMOGLOBIN 11.3 g/dl (13.5-17.5); LYMPH # 0.4 10^3/uL (1.5-4.5); LYMPH % 5.1 % (24.0-44.0); MEAN CORPUSCULAR HEMOGLOBIN 33.4 pg (27.0-33.0); MEAN CORPUSCULAR HGB CONC 32.4 g/dl (32.0-36.5); MEAN CORPUSCULAR VOLUME 103.3 fl (80.0-96.0); MONO # 0.8 10^3/uL (0.0-0.8); MONO % 9.2 % (0.0-5.0); NEUTROPHILS # 6.8 10^3/uL (1.8-7.7); NEUTROPHILS % 81.6 % (36.0-66.0); PLATELET COUNT, AUTOMATED 214 10^3/uL (150-450); RED BLOOD COUNT 3.38 10^6/uL (4.30-6.10); RED CELL DISTRIBUTION WIDTH 16.2 % (11.5-14.5); WHITE BLOOD COUNT 8.3 10^3/uL (4.0-10.0)
[2017-10-28] MEDS: SLF 3 ML SYR IV ×3 (05:32→21:39)
[2017-10-28 05:42] LABS: ALBUMIN 1.9 GM/DL (3.2-5.2); ALBUMIN/GLOBULIN RATIO 0.41 (1.00-1.93); ALKALINE PHOSPHATASE 60 U/L (45-117); ALT/SGPT 57 U/L (12-78); ANION GAP 15 MEQ/L (8-16); AST/SGOT 48 U/L (7-37); BILIRUBIN,TOTAL 0.7 MG/DL (0.2-1.0); BLOOD UREA NITROGEN 84 MG/DL (7-18); CALCIUM LEVEL 8.5 MG/DL (8.8-10.2); CARBON DIOXIDE LEVEL 20 MEQ/L (21-32); CHLORIDE LEVEL 100 MEQ/L (98-107); CREATININE FOR GFR 4.44 MG/DL (0.70-1.30); GLOMERULAR FILTRATION RATE 13.8 (>42); GLUCOSE, FASTING 184 MG/DL (70-100); PHOSPHORUS LEVEL 6.2 MG/DL (2.5-4.9); POTASSIUM SERUM 4.3 MEQ/L (3.5-5.1); SODIUM LEVEL 135 MEQ/L (136-145); TOTAL PROTEIN 6.5 GM/DL (6.4-8.2)
[2017-10-28] MEDS: MECLIZINE 25 MG TABLET PO ×3 (08:32→21:32)
[2017-10-28] MEDS: ASPIRIN 325 MG TAB PO (08:32)
[2017-10-28] MEDS: busPIRone 10 MG TAB PO (08:33)
[2017-10-28] MEDS: RIVAROXABAN 15 MG TAB (XARELTO) PO (08:33)
[2017-10-28] MEDS: HumaLOG INSULIN (NovoLOG) PER UNIT SC ×4 (08:34→21:00)
[2017-10-28] MEDS: PERCOCET 5MG/325MG TAB PO (08:34)
[2017-10-28] MEDS: KETOCONAZOLE 2% CREAM TOP ×2 (08:37→21:38)
[2017-10-28] MEDS: CARVedilol 12.5 MG TAB PO (08:37)
[2017-10-28] MEDS: PIPERACILLIN/TAZOBACTAM SOD 2.25 GM in D5W MINI-BAG PLUS 50 ML IV (08:37)
[2017-10-28] MEDS: MECLIZINE 12.5 MG TAB PO (12:00)
[2017-10-28 12:36] LABS: BEDSIDE GLUCOSE 195 MG/DL (83-110)
[2017-10-28 12:44] LABS: BEDSIDE GLUCOSE 200 MG/DL (83-110)
[2017-10-28] MEDS: HEPARIN 1,000 UNITS/ML 10ML VIAL (FOR RADIOLOGY& DIALYSIS ONLY) XX (14:00)
[2017-10-28] MEDS ORDERED: LIDOCAINE 1% MDV 20ML VIAL As Ordered (15:22)
[2017-10-28] MEDS: NS 500 ML IV (15:45)
[2017-10-28] MEDS: [UNRECOGNIZED DRUG - REMARK] XX (16:00)
[2017-10-28 18:30] LABS: BEDSIDE GLUCOSE 125 MG/DL (83-110)
[2017-10-28] MEDS ORDERED: SODIUM CHLORIDE 0.9% INJ 10 ML SYR IV (18:30)
[2017-10-28] MEDS: PRAVASTATIN 20 MG TAB PO ×2 (21:00→21:31)
[2017-10-28] MEDS: CARVedilol 6.25 MG TAB PO ×2 (21:00→21:31)
[2017-10-28 21:26] LABS: BEDSIDE GLUCOSE 108 MG/DL (83-110)
[2017-10-28] MEDS: LEVOTHYROXINE 137MCG TABLET (0.137MG) PO (21:30)
[2017-10-28] MEDS ORDERED: cefTAZidime 1 GM VIAL (J0713) As Ordered (21:53)
[2017-10-28] MEDS: cefTAZidime 1 GM in D5W MINI-BAG PLUS 50 ML IV (22:05)
[2017-10-29 05:15] LABS: BASO # 0.1 10^3/uL (0.0-0.2); BASO % 0.7 % (0.0-1.0); EOS # 0.1 10^3/uL (0.0-0.50); EOS % 0.9 % (0.0-3.0); HEMATOCRIT 32.5 % (42.0-52.0); HEMOGLOBIN 10.4 g/dl (13.5-17.5); IMMATURE GRANULOCYTE % 3.8 % (0-3.0); LYMPH # 0.5 10^3/uL (1.5-4.5); LYMPH % 5.7 % (24.0-44.0); MEAN CORPUSCULAR HEMOGLOBIN 33.2 pg (27.0-33.0); MEAN CORPUSCULAR VOLUME 103.8 fl (80.0-96.0); MONO # 0.8 10^3/uL (0.0-0.8); MONO % 9.1 % (0.0-5.0); NEUTROPHILS # 6.9 10^3/uL (1.8-7.7); NEUTROPHILS % 79.8 % (36.0-66.0); PLATELET COUNT, AUTOMATED 200 10^3/uL (150-450); RED BLOOD COUNT 3.13 10^6/uL (4.30-6.10); WHITE BLOOD COUNT 8.6 10^3/uL (4.0-10.0)
[2017-10-29] MEDS: SODIUM CHLORIDE 0.9% INJ 10 ML SYR IV ×2 (05:40→17:41)
[2017-10-29] MEDS: SLF 3 ML SYR IV ×3 (05:41→21:06)
[2017-10-29 07:02] LABS: ALBUMIN/GLOBULIN RATIO 0.54 (1.00-1.93); ALKALINE PHOSPHATASE 68 U/L (45-117); ALT/SGPT 48 U/L (12-78); ANION GAP 14 MEQ/L (8-16); AST/SGOT 46 U/L (7-37); BILIRUBIN,TOTAL 0.9 MG/DL (0.2-1.0); BLOOD UREA NITROGEN 40 MG/DL (7-18); CALCIUM LEVEL 8.4 MG/DL (8.8-10.2); CARBON DIOXIDE LEVEL 23 MEQ/L (21-32); CHLORIDE LEVEL 102 MEQ/L (98-107); CREATININE FOR GFR 3.32 MG/DL (0.70-1.30); GLOMERULAR FILTRATION RATE 19.3 (>42); GLUCOSE, FASTING 122 MG/DL (70-100); POTASSIUM SERUM 4.3 MEQ/L (3.5-5.1); SODIUM LEVEL 139 MEQ/L (136-145); TOTAL PROTEIN 5.7 GM/DL (6.4-8.2)
[2017-10-29] MEDS: HumaLOG INSULIN (NovoLOG) PER UNIT SC ×4 (07:30→21:00)
[2017-10-29] MEDS: ASPIRIN 325 MG TAB PO ×2 (08:55→08:58)
[2017-10-29] MEDS: KETOCONAZOLE 2% CREAM TOP (08:55)
[2017-10-29] MEDS: MECLIZINE 25 MG TABLET PO ×2 (08:58→21:00)
[2017-10-29] MEDS: CARVedilol 6.25 MG TAB PO ×2 (08:58→21:00)
[2017-10-29] MEDS ORDERED: MOM 30ML SUSPENSION UDC PO (09:00)
[2017-10-29] MEDS ORDERED: DOCUSATE SODIUM 100 MG CAP PO (09:00)
[2017-10-29 11:08] LABS: DRVV SCREEN 40.2 SEC
[2017-10-29] MEDS ORDERED: HEPARIN SOD (PORCINE) 5000 UNITS/ML VIAL IV (11:45)
[2017-10-29] MEDS: MECLIZINE 12.5 MG TAB PO (12:00)
[2017-10-29 12:40] LABS: BEDSIDE GLUCOSE 123 MG/DL (83-110)
[2017-10-29] MEDS: HEPARIN SOD (PORCINE) 5000 UNITS/ML VIAL IV (13:54)
[2017-10-29] MEDS: HEPARIN DRIP 25,000 UNITS in APPROPRIATE DILUENT 1 EA IV (13:57)
[2017-10-29 14:07] LABS: AMMONIA < 10 uMOL/L (<32)
[2017-10-29] MEDS: NS 500 ML IV ×2 (14:45→15:45)
[2017-10-29] MEDS: [UNRECOGNIZED DRUG - REMARK] XX (16:00)
[2017-10-29 16:54] LABS: BEDSIDE GLUCOSE 139 MG/DL (83-110)
[2017-10-29 20:14] LABS: BEDSIDE GLUCOSE 113 MG/DL (83-110)
[2017-10-29] MEDS: LEVOTHYROXINE 137MCG TABLET (0.137MG) PO (21:00)
[2017-10-29] MEDS: PRAVASTATIN 20 MG TAB PO (21:00)
[2017-10-29] MEDS: cefTAZidime 1 GM in D5W MINI-BAG PLUS 50 ML IV (21:06)
[2017-10-29] MEDS: BISACODYL 10 MG SUPP PR (21:27)
[2017-10-29 21:29] LABS: PARTIAL THROMBOPLASTIN TIME > 240.0 SECONDS (25.4-37.6)
[2017-10-29] MEDS: HEPARIN 1,000 UNITS/ML 10ML VIAL (FOR RADIOLOGY& DIALYSIS ONLY) IV (23:14)
[2017-10-29] MEDS: HEPARIN 1,000 UNITS/ML 10ML VIAL (FOR RADIOLOGY& DIALYSIS ONLY) XX (23:14)
[2017-10-30] MEDS: KETOCONAZOLE 2% CREAM TOP ×3 (00:38→19:41)
[2017-10-30 04:51] LABS: MEAN CORPUSCULAR HEMOGLOBIN 33.2 pg (27.0-33.0); MEAN CORPUSCULAR HGB CONC 31.3 g/dl (32.0-36.5); MEAN CORPUSCULAR VOLUME 106.3 fl (80.0-96.0); PLATELET COUNT, AUTOMATED 232 10^3/uL (150-450); RED BLOOD COUNT 3.01 10^6/uL (4.30-6.10); WHITE BLOOD COUNT 9.4 10^3/uL (4.0-10.0)
[2017-10-30 04:55] LABS: ADD MANUAL DIFFER YES; DIFF SLIDE NUMBER 47; POS COUNT POS FLAG; POSITIVE MORPH POS FLAG
[2017-10-30 05:12] LABS: PARTIAL THROMBOPLASTIN TIME 133.5 SECONDS (25.4-37.6)
[2017-10-30] MEDS: SLF 3 ML SYR IV ×2 (05:24→14:00)
[2017-10-30] MEDS: SODIUM CHLORIDE 0.9% INJ 10 ML SYR IV ×2 (05:26→18:00)
[2017-10-30] MEDS: NS 500 ML IV ×2 (05:26→15:15)
[2017-10-30 05:29] LABS: ALBUMIN 1.9 GM/DL (3.2-5.2); ALBUMIN/GLOBULIN RATIO 0.46 (1.00-1.93); ALKALINE PHOSPHATASE 86 U/L (45-117); ALT/SGPT 43 U/L (12-78); ANION GAP 17 MEQ/L (8-16); AST/SGOT 51 U/L (7-37); BILIRUBIN,TOTAL 0.9 MG/DL (0.2-1.0); BLOOD UREA NITROGEN 27 MG/DL (7-18); CALCIUM LEVEL 8.6 MG/DL (8.8-10.2); CARBON DIOXIDE LEVEL 20 MEQ/L (21-32); CHLORIDE LEVEL 101 MEQ/L (98-107); CREATININE FOR GFR 2.82 MG/DL (0.70-1.30); GLOMERULAR FILTRATION RATE 23.3 (>42); GLUCOSE, FASTING 128 MG/DL (70-100); PHOSPHORUS LEVEL 3.1 MG/DL (2.5-4.9); POTASSIUM SERUM 4.2 MEQ/L (3.5-5.1); SODIUM LEVEL 138 MEQ/L (136-145)
[2017-10-30 05:55] LABS: BANDS 1 % (< 11); EOSINOPHILS 1 % (0-5); LYMPHOCYTES 10 % (16-52); METAMYELOCYTES 1 % (0-0); MONOCYTES 5 % (0-8); MYELOCYTES 3 % (0-0); NEUTROPHILS 79 % (35-75)
[2017-10-30 05:56] LABS: PLATELET ESTIMATE NORMAL (NORMAL)
[2017-10-30] MEDS: HumaLOG INSULIN (NovoLOG) PER UNIT SC ×3 (07:27→17:30)
[2017-10-30] MEDS: MECLIZINE 25 MG TABLET PO (09:00)
[2017-10-30] MEDS: CARVedilol 6.25 MG TAB PO (09:00)
[2017-10-30] MEDS: ASPIRIN 325 MG TAB PO (09:00)
[2017-10-30] MEDS ORDERED: ISOVUE-370 76% 100ML VIAL (Q9967) As Ordered (10:14)
[2017-10-30] MEDS: NOREPINEPHRINE BITARTRATE 8 MG in D5W 492 ML IV (11:04)
[2017-10-30 11:19] LABS: HEPATITIS B CORE ANTIBODY IGM NEGATIVE (NEGATIVE); HEPATITIS B SURFACE ANTIBODY NEGATIVE (POSITIVE); HEPATITIS B SURFACE ANTIGEN NEGATIVE (NEGATIVE); HEPATITIS C VIRUS ABY INDEX 0.2 INDEX (<0.8)
[2017-10-30] MEDS: MECLIZINE 12.5 MG TAB PO (11:20)
[2017-10-30 11:45] LABS: BEDSIDE GLUCOSE 140 MG/DL (83-110)
[2017-10-30 12:58] LABS: PARTIAL THROMBOPLASTIN TIME 86.8 SECONDS (25.4-37.6)
[2017-10-30] MEDS: HEPARIN DRIP 25,000 UNITS in APPROPRIATE DILUENT 1 EA IV (13:23)
[2017-10-30 14:16] LABS: HEPATITIS B CORE ANTIBODY IGG Negative (Negative)
[2017-10-30] MEDS: [UNRECOGNIZED DRUG - REMARK] XX (16:00)
[2017-10-30 17:31] LABS: BEDSIDE GLUCOSE 196 MG/DL (83-110)
[2017-10-30] MEDS ORDERED: SCOPOLAMINE 1MG TRANSDERMAL PATCH TOP (19:00)
[2017-10-30] MEDS ORDERED: ACETAMINOPHEN 650 MG SUPP PR (19:00)
[2017-10-30] MEDS: LORazepam 2 MG/ML VIAL (J2060) IV ×2 (19:28→21:48)
[2017-10-30] MEDS: MORPHINE 4 MG/ML 1ML VIAL/SYRINGE (J2270) IV ×2 (19:28→21:48)
[2017-10-31 00:06] LABS: PHOSPHOLIPIDS LEVEL 145 mg/dL (150-250)
[2017-10-31 00:06] LABS: ANTI THROMBIN 3 ANTIGEN IMMUNO 93 % (72-124); ANTI THROMBIN 3 FUNCT ACTIVITY 110 % (75-135); CARDIOLIPIN IGA ANTIBODY <9 APL U/mL (0-11); CARDIOLIPIN IGG ANTIBODY <9 GPL U/mL (0-14); CARDIOLIPIN IGM ANTIBODY <9 MPL U/mL (0-12); PROTEIN C FUNCTIONAL ACTIVITY 116 % (73-180); PROTEIN S FUNCTIONAL ACTIVITY 76 % (63-140)
== END 2017-10-31 00:57 | disposition expired | DRG 299 ==
LOC: M ICU 10-28 12:18 → M ED 06:42 → M ED INP 10:55 → M PCU 16:27
PROC: 02HV33Z Insertion of Infusion Device into Superior Vena Cava, Percutaneous Approach (ICD-10-PCS; principal; 2017-10-28)
PROC: 02HV33Z Insertion of Infusion Device into Superior Vena Cava, Percutaneous Approach (ICD-10-PCS; 2017-10-28)
PROC: 5A1D70Z Performance of Urinary Filtration, Intermittent, Less than 6 Hours Per Day (ICD-10-PCS; 2017-10-28)
DX: I82.412 Acute embolism and thrombosis of left femoral vein (principal); I50.23 Acute on chronic systolic (congestive) heart failure; D84.9 Immunodeficiency, unspecified; L03.116 Cellulitis of left lower limb; K51.90 Ulcerative colitis, unspecified, without complications; N17.9 Acute kidney failure, unspecified; R78.81 Bacteremia; N18.5 Chronic kidney disease, stage 5; I13.2 Hypertensive heart and chronic kidney disease with heart failure and with stage 5 chronic kidney disease, or end stage renal disease; I25.10 Atherosclerotic heart disease of native coronary artery without angina pectoris; I82.431 Acute embolism and thrombosis of right popliteal vein; Z51.5 Encounter for palliative care; Z66 Do not resuscitate; I95.2 Hypotension due to drugs; M47.816 Spondylosis without myelopathy or radiculopathy, lumbar region; R57.0 Cardiogenic shock; H81.12 Benign paroxysmal vertigo, left ear; B35.4 Tinea corporis; E11.22 Type 2 diabetes mellitus with diabetic chronic kidney disease; E78.5 Hyperlipidemia, unspecified; E03.9 Hypothyroidism, unspecified; F41.9 Anxiety disorder, unspecified; J44.9 Chronic obstructive pulmonary disease, unspecified; I25.5 Ischemic cardiomyopathy; T46.905A Adverse effect of unspecified agents primarily affecting the cardiovascular system, initial encounter; K59.00 Constipation, unspecified; I25.2 Old myocardial infarction; M10.9 Gout, unspecified; D50.9 Iron deficiency anemia, unspecified; E55.9 Vitamin D deficiency, unspecified; Z79.4 Long term (current) use of insulin; Z79.82 Long term (current) use of aspirin; Z79.899 Other long term (current) drug therapy; M51.36 Other intervertebral disc degeneration, lumbar region; L40.9 Psoriasis, unspecified; Z95.810 Presence of automatic (implantable) cardiac defibrillator; Z87.891 Personal history of nicotine dependence; Z95.5 Presence of coronary angioplasty implant and graft; Z88.8 Allergy status to other drugs, medicaments and biological substances; Z68.34 Body mass index [BMI] 34.0-34.9, adult